=== PATIENT | female | born 1950 | race Caucasian/White ===

== ENCOUNTER 2019-12-30 12:22 | Outpatient (CLI) | payer MEDICARE, SELFPAY ==
--- NOTE | ~2019-12-30 | XR_ITS ---
XR pelvis 1-2V DATE: 12/30/2019 12:49 INDICATION: Frequent falls. Lower back, pelvic pain TECHNIQUE: AP pelvis COMPARISON: None FINDINGS: No pelvic fracture or bone destruction. The pubic symphysis and sacroiliac joints are intac t. There is mild osteoarthritis at the hip joints. IMPRESSION: No pelvic fracture Reviewed, dictated and finalized at location B. IMPRESSION: No pelvic fracture
--- NOTE | ~2019-12-30 | XR_ITS ---
XR lumbar spine 2-3V DATE: 12/30/2019 12:49 INDICATION: Frequent falls. Lower back pain, left pelvic pain. TECHNIQUE: AP, lateral, coned lateral lumbosacral views COMPARISON: 07/10/2018 lumbar spine FINDINGS: There is mild rotatory levoscoliosis of the lumbar spine. Diffuse osteopenia. No fracture or bone destruction, spondylolysis or spondylolisthesis is evident. There is prominent de generative change at the apophyseal joints, particularly lower lumbar and lumbosacral area. There is moderate degenerative disc disease at L4-5 and L5-S1. The sacroiliac joints are intact. Surgical clips overlie the right upper quadrant, likely due to cholecystectomy. IMPRESSION: Osteopenia Mild rotatory levoscoliosis Degenerative changes Reviewed, dictated and finalized at location B.
== END 2019-12-30 12:23 | disposition home or self-care (01) ==
PROVIDERS: PCP Internal Medicine; Visit Provider Nurse Practitioner Family
DX: M54.5 Low back pain (principal)
CPT/HCPCS: 72100; 72170

== ENCOUNTER 2021-06-06 14:42 | Emergency (ER) | payer MEDICARE, SELFPAY ==
--- NOTE | ~2021-06-06 | CT_ITS ---
EXAMINATION: CT brain wo [facility] EXAM DATE: 06/06/2021 15:11 INDICATION: Fall, right posterior head injury. TECHNIQUE: Spiral CT of the head was performed without contrast. Axial, coronal and sagittal images were reviewed. The dose-length product (DLP) for this examination was 605.33 mGy-cm. The exposure w as tailored according to patient size, and iterative reconstruction (ASIR) was used as additional dos e reduction technique. Comparison is made to prior examination from 07/25/2017. FINDINGS: Bilateral deep brain stimulators. Mild microangiopathy and mild to moderate atrophy. There is no acute intraparenchymal hemorrhage. No evidence of intraparenchymal brain mass lesion. No evid ence of acute infarction. There is no mass effect or midline shift. The ventricles are normal in si ze. There are no extra-axial collections. There are no acute calvarial fractures. The orbits are un remarkable. Soft tissue is unremarkable. The visualized sinuses and mastoid air cells are well aera darion. There is no significant interval change. IMPRESSION: No acute intracranial findings. Reviewed, dictated and finalized at location A.
--- NOTE | 2021-06-06 14:52 | ED.FALL ---
HPI - Fall General Chief Complaint: Fall Stated Complaint: AMBULANCE Time Seen by Provider: 06/06/21 14:44 Source: patient Mode of arrival: EMS Limitations: no limitations History of Present Illness HPI Narrative: 71-year-old woman with a history of Parkinson's and lives at assisted living facility brought to the emergency department by EMS after she slipped in the shower and hit the back of her head. She did not lose consciousness and states that she had no chest pain, shortness of breath, palpitations or headache prior to the fall. She has had no vomiting since then states that she feels well other than some pain in the back of her head. She denies neck and back pain, shoulder and hip pain, leg pain arm pain. Her usual mode of transportation as by pushing herself in a wheelchair. She states that she can transfer on her own. complaint: fall Onset (ago): hour(s) (1) Fall from: standing Fall witnessed: no Place fall occurred: correction/SNF Loss of consciousness: none Prolonged down time: no Symptoms prior to fall: none Context: tripped/slipped Location of injury: head Severity: mild Associated symptoms (after fall): denies Related Data Home Medications Medication Instructions Recorded Confirmed Teva-Doperidone 10 mg PO USEASDIRECTD 06/06/21 06/06/21 amantadine HCl 100 mg PO TID 06/06/21 06/06/21 aspirin 81 mg PO DAILY 06/06/21 06/06/21 carbidopa-levodopa 2.5 tablet PO USEASDIRECTD 06/06/21 06/06/21 montelukast 10 mg PO HS 06/06/21 06/06/21 paroxetine HCl 40 mg PO DAILY 06/06/21 06/06/21 trazodone 50 mg PO HS 06/06/21 06/06/21 Allergies Allergy/AdvReac Type Severity Reaction Status Date / Time codeine Allergy Unknown Unknown Verified 06/06/21 14:47 meperidine [From Demerol] Allergy Unknown Verified 06/06/21 14:47 zolpidem [From Ambien] Allergy Unknown Verified 06/06/21 14:47 Review of Systems Review of Systems: All systems reviewed & are unremarkable except as noted in HPI and below Constitutional: Constitutional: Denies chills and Denies fever(s) Eyes: Eyes: Denies change in vision ENT: Denies nasal congestion and Denies sore throat Cardiovascular: Cardiovascular: Denies chest pain and Denies radiating jaw, neck or arm pain Respiratory: Respiratory: Denies cough and Denies dyspnea Gastrointestinal: Gastrointestinal: Denies abdominal pain, Denies nausea and Denies vomiting Genitourinary: Genitourinary: Denies nocturia and Denies dysuria Musculoskeletal: Musculoskeletal: Denies back pain, Denies arthralgias and Denies joint swelling Integumentary/Breasts: Skin/Breast: Denies pruritus, Denies erythema and Denies rash Neurologic: Denies vertigo, Denies dizziness, Denies syncope, Denies headache(s), Denies focal weakness and Denies numbness Hematologic/Lymphatic: Hematologic/Lymphatic: Denies easy bleeding and Denies easy bruising Allergic/Immunologic: Allergic/Immunologic: Denies lip swelling and Denies throat swelling PMFSH Past Medical History Medical History Falls Hyperlipidemia Hypertension Insomnia Parkinsons disease Surgical History Surgical History History of cataract surgery Family History Family History (Updated 04/13/15 @ 10:01 by DOCTOR UNKNOWN) Father Family history of emphysema Mother Family history of congestive heart failure Other Cerebrovascular accident Social History Social History Smoking status: Never smoker Alcohol intake: current Exam Const: General: healthy appearing, no acute distress and alert Orientation/consciousness: patient oriented x3 Limitations: no limitations HENMT: Head: normal to inspection Ears: external ears normal, TM's normal bilaterally and EAC's normal General nose exam: Normal nares present Face and sinus: normal facial exam Mouth: Yes moist mucous mem
[2021-06-06 15:05] VITALS: BP 154/70; PULSE 83; RESP 16; TEMP 36.7; O2SAT 96
[2021-06-06 15:50] VITALS: BP 139/65; PULSE 75; RESP 18; O2SAT 98
== END 2021-06-06 15:50 | disposition home or self-care (01) ==
PROVIDERS: Emergency Provider Emergency Medicine; PCP Internal Medicine
DX: G20 Parkinson's disease (principal); S09.90XA Unspecified injury of head, initial encounter; W18.2XXA Fall in (into) shower or empty bathtub, initial encounter; E78.5 Hyperlipidemia, unspecified; I10 Essential (primary) hypertension
CPT/HCPCS: 70450; 99282; 99284

== ENCOUNTER 2022-07-23 13:53 | Outpatient (CLI) | payer MEDICARE, SELFPAY ==
--- NOTE | ~2022-07-23 | XR_ITS ---
EXAM: XR knee RT 3V DATE: 07/23/2022 14:44 HISTORY: R KNEE PAIN no known injury or fall . COMPARISON: None available. FINDINGS: Slightly decreased mineralization. No fracture or dislocation. No lytic or blastic lesion. Severe medial joint space narrowing. Tricompartmental osteophytosis, moderate in the lateral compart ment. Loss of valgus alignment. No erosion or periosteal change. Soft tissues within normal limits. M oderate volume joint effusion. IMPRESSION: Tricompartmental right knee osteoarthritis, severe in the medial compartment. Reviewed, dictated and finalized at location K. IMPRESSION: Tricompartmental right knee osteoarthritis, severe in the medial co mpartment.
--- NOTE | ~2022-07-23 | XR_ITS ---
EXAMINATION: XR chest 2V DATE: 07/23/2022 14:43 INDICATION: Shortness of breath and cough TECHNIQUE: Frontal and lateral views of the chest are obtained COMPARISON: 04/07/2015 FINDINGS: There are minimal airspace opacities of the right lung base. No pleural effusion or pneumot horax. The cardiomediastinal silhouette is normal. There is mild thoracic spondylosis. Surgical clips in the upper abdomen on the lateral view are likely from prior cholecystectomy. Electronic devices a re implanted in the anterior chest wall with there are electrodes coursing beyond the superior margin of the radiograph, likely deep brain stimulators. IMPRESSION: 1. Minimal right basilar airspace opacity, consistent with atelectasis versus pneumonia. Reviewed, dictated and finalized at location A. IMPRESSION: 1. Minimal right basilar airspace opacity, consistent with atelectasis versus p neumonia.
== END 2022-07-23 13:54 | disposition home or self-care (01) ==
PROVIDERS: PCP Internal Medicine; Visit Provider Nurse Practitioner Family
DX: M25.561 Pain in right knee (principal); R32 Unspecified urinary incontinence; R06.00 Dyspnea, unspecified
CPT/HCPCS: 71046; 73562

== ENCOUNTER 2022-07-26 12:09 | Outpatient (CLI) | payer MEDICARE, SELFPAY ==
[2022-07-26 12:20] LABS: Appearance Urine Cloudy (Clear); Bilirubin Urine Negative (Negative); Blood Urine Negative (Negative); Glucose Urine UA Negative (Negative); Ketones Urine Negative (Negative); Leukocyte Esterase Ur 3+ (Negative); Nitrate Urine Positive (Negative); Protein Urine 1+ (Negative); Specific Grav Ur <= 1.005 (1.010-1.020); Urobilinogen Urine 0.2 mg/dL (0.2-1.0)
[2022-07-26 12:25] LABS: Add Urine Microscopic? YES; Color Urine Yellow (Yellow); RBC Urine 0-2 /hpf (0-2); Squamous Epithelial Cell Urine Rare /hpf (Few)
[2022-07-26 12:27] LABS: Bacteria Urine 2+ /hpf
[2022-07-26 12:28] LABS: Triple Phosphate Crystal Urine Present /hpf
== END 2022-07-26 12:10 | disposition home or self-care (01) ==
LOC: CHSLAB 12:11
PROVIDERS: PCP Internal Medicine; Visit Provider Nurse Practitioner Family
DX: R30.0 Dysuria (principal); R32 Unspecified urinary incontinence
CPT/HCPCS: 81001; 87077; 87086; 87088; 87186

== ENCOUNTER 2025-04-13 01:43 | Day surgery (SDC) | payer MEDICARE, SELFPAY ==
[2025-04-12 14:14] VITALS: BMI 30.7
--- NOTE | 2025-04-12 14:30 | PC.NURSE ---
Report to the Outpatient Waiting Room, entrance under the green pavilion located off [facility], at time _10:00am on date _04/13/25 . Planned Procedure Time: _12:00pm .? Time changes happen often and if your time is changed the preop area will call you the afternoon before. - You and your visitor will be asked to self-screen and do not enter if you have any COVID symptoms. Please call surgeon if you need to reschedule. - A mask is optional within the hospital at this time. Patients may have clear liquids (water, carbonated beverages, clear teas, apple juice) until 3 hours prior to surgery with a maximum of 20 ounces. - No food from midnight until time of surgery and no smoking, or chewing tobacco (or any form of nicotine). No chewing gum, candy or mints. (0900am) Take only the following medications with a SIP of water on the morning of surgery: ___Carbodopa/Levodopa and Lexapro DO NOT STOP ANY OF YOUR OTHER PRESCRIPTION MEDICATIONS PRIOR TO SURGERY EXCEPT THE FOLLOWING Hold all vitamins and supplements for 3 days per anesthesiologist. Medications to discontinue per physician Aspirin till post op Date to take last dose 04/11/25 Please no make-up, nail solomon islander, hairspray, perfume, deodorant, or body powder the day of surgery.? No jewelry (including any body piercings) or valuables the day of surgery, leave them at home.? Please take a shower or bath the night before, or the morning of, surgery with an antibacterial soap.? Wear comfortable, loose fitting clothing. - Jewelry must be removed prior to entering the operating room.? Rings and piercings that are not removed may be cut off. - The hospital will not accept responsibility for valuables.? - Please leave all valuables, including medications, at home the day of surgery. Daughter to bring in the DEEP BRAIN STIMULATOR with her to turn off PRE OP. If you are going home after surgery, a licensed milk pickup truck driver must drive you home.? - NO public transportation without another adult if you receive anesthesia. - We recommend that an adult stay with you for 24 hours following discharge. - We also recommend that you do not drive, make important decision, drink alcoholic beverages, or take any drugs that were not prescribed by your health care provider for at least 24 hours after your discharge time. Follow any additional instructions given to you from your surgeon. Telephone instructions given to __Patient and asked if any additional questions and then verbalized understanding. Patient advised to call surgeon office or pre surgery nurse liaison [phone] if any additional questions.
[2025-04-13] VITALS (12 sets, daily range): BP systolic 121–194; BP diastolic 53–90; PULSE 59–94; RESP 18–25; TEMP 36.6–36.9; O2SAT 93–100; BMI 28.2
--- NOTE | ~2025-04-13 | XR_ITS ---
XR fluoroscopy no charge Ordering provider: Ta Denise MD History: . LT STONE EXTRACTION . Comparison: None. FINDINGS/impression: Fluoroscopy time is 17.7 seconds. Cumulative dose is 6.65 mGy. Reviewed, dictated and finalized at location A.
--- OUTSIDE RECORDS SUMMARY | 2025-04-13 02:11 | XMS_ITS | Clinical Summary ---
Author Organization [facility] Address [facility] [place] [address] Care Team Providers Care Brush Finisher Name Role Phone Yannick Lange MD Primary Care Provider [phone] Allergies Active Allergy Reactions Criticality Noted Date Comments Codeine GI Upset 07/18/2021 Meperidine GI Upset 07/18/2021 Zolpidem Unknown 01/31/2024 Medications carbidopa-levod opa (SINEMET) 25-100 MG tablet Take 2.5 tablets by mouth 4 (four) times daily. Patient takes medication 4 times daily at 0830, 1230, 1630, and 2030. 4 Active amantadine (SYMMETREL) 100 MG capsule Take 1 capsule (100 mg total) by mouth 3 (three) times daily. Patient takes medication at 0830 and 1230. 4 Active traZODone (DESYREL) 50 MG tablet Take 1 tablet (50 mg total) by mouth nightly at bedtime. 4 Active montelukast (SINGULAIR) 10 MG tablet Take 1 tablet (10 mg total) by mouth nightly at bedtime. Active aspirin 81 MG chewable tablet Chew 1 tablet (81 mg total) by mouth daily. Patient takes medication at 2030. Active Active Problems Problem Noted Date Diagnosed Date Frequent falls 04/27/2019 Encounters Date Type Department Care Team Description 04/08/2025 1:22 PM CDT - 04/08/2025 11:59 PM CDT Hospital Encounter [facility] [address] [facility] [place] [address] Benny Lubin PA Discharge Disposition: Home or Self Care (Routine Discharge) 04/08/2025 Travel from Last 3 Months Family History Medical History Relation Comments COPD Father Emphysema Father Heart Disease Father COPD Mother Diabetes Mother Emphysema Mother Relation Status Comments Father Mother Social History Tobacco Use Types Packs/Day Years Used Date Smoking Tobacco: Never Smokeless Tobacco: Never Alcohol Use Standard Drinks/Week Comments Yes 0 (1 standard drink = 0.6 oz pur e alcohol) rare Comments No Sex and Gender Information Value Date Recorded Sex Assigned at Female 11/27/2024 5:47 PM SHOPPER'S AIDE Legal Sex Female 5:55 PM SHOPPER'S AIDE Gender Identity Not on file Sexual Orientation Not on file Last Filed Vital Signs Vital Sign Reading Time Taken Comments Blood Pressure 114/87 11/27/2024 5:45 PM SHOPPER'S AIDE Pulse 92 11/27/2024 5:45 PM SHOPPER'S AIDE Temperature 36.6 C (97.8 F) 11/27/2024 5:45 PM SHOPPER'S AIDE Respiratory Rate 18 11/27/2024 5:45 PM SHOPPER'S AIDE Oxygen Saturation 95% 11/27/2024 5:45 PM SHOPPER'S AIDE Inhaled Oxygen Concentration - - Weight 80.7 kg (178 lb) 11/27/2024 5:45 PM SHOPPER'S AIDE Height 162.6 cm (5' 4) 11/27/2024 5:45 PM SHOPPER'S AIDE Body Mass Index 30.55 11/27/2024 5:45 PM SHOPPER'S AIDE Plan of Treatment Health Maintenance Due Date Last Done Comments Colorectal Cancer Screening Colonoscopy (10 Years) 1950 Hepatitis C 1967 DTaP, Tdap and Td Vaccines ( 1 - Tdap) 1968 Annual Medicare Wellness Visit 2014 Dexa Scan (General) 2014 Zoster Vaccines (2 of 3) 09/10/2014 07/16/2014 Pneumococcal Vaccine: 50+ Ye ars (2 of 2 - PPSV23) 12/21/2020 12/22/2019 RSV Immunization or 60+ Years (1 - 1-dose 75+ series) 2024 COVID-19 Vaccine (2 - 2023-2 5 season) 2024 12/21/2020 Meningococcal B Vaccine Aged Out No l onger eligible based on patient's age to complete this topic Meningococcal Vaccine Aged Out No zenaida amanda eligible based on patient's age to complete this topic RSV Immunizations Under 20 Months Aged Out No longer eligible based on patient's age to complete this topic Procedures Procedure Name Priority Date/Time Associated Diagnosis Comments CT ABD+PEL WO CON HOLLIE 04/08/2025 1:5 5 PM CDT Acute left flank pain XR ABD KUB HOLLIE 04/08/2025 1:51 PM CDT Acute left flank pain from Last 3 Months Results * CT ABD+PEL WO CON (04/08/2025 1:55 PM CDT) Anatomical Region Laterality Modality Abdomen Computed Tomogra phy 04/08/2025 1:54 PM CDT Impressions 04/08/2025 2:05 PM CDT IMPRESSION: 1. Approximately 0.8 cm obstructing stone, near LEFT ureterovesical junction, causing left hydronephrosis. 2. Nonobstructing stones, calyces of bilateral kidneys. 3. Possible cystitis. 4. Coronary artery disease. Ordered By: BENNY LUBIN Interpreted By: John Franklin MD, 04/08/2025 1:54 PM Narrative 04/08/2025 2:05 PM [address]T [address] [place] [address] EXAMINATION: CT Abdomen and Pelvis without contrast DATE: 04/08/2025 1:43 PM CLINICAL HISTORY: Acute left flank pain. COMPARISON: 03/01/2024 TECHNIQUE: Computed tomography of the abdomen and pelvis was obtained without administration of intravenous contrast according to routine protocol. A dose lowering technique was used for this procedure, which may include, but is not limited to, dose reduction technique, automated exposure control, the use of iterative reconstruction, and ALARA (As Low As Reasonably Achievable) / Image Gently techniques. FINDINGS: Breathing motion in bibasilar lungs. Coronary artery disease. Small hiatal hernia. Atherosclerotic thoracic aorta. Punctate liver and splenic calcifications. Noncontrast images of the pancreas, and adrenal glands are normal. Cholecystectomy clips. Approximately 0.8 cm projecting stone near the left ureterovesical junction, causing left hydronephrosis with periureteral and perinephric fat stranding. There appears to be a nonobstructing stone in the calyx of left kidney measuring up to 5 mm. There is one nonobstructing stone measuring up to 6 mm in the calyx of right kidney. No right ureteral stones. Atherosclerotic abdominal aorta without aneurysm. No retroperitoneal hematoma. No bowel obstruction. No free air. No ascites. Normal appendix. Postsurgical changes in the small bowel. Uterus is absent. Ovaries not well visualized. Nondistended urinary bladder. Pelvic fat stranding around the urinary bladder. Pelvic vascular arterial calcifications. Scoliosis. Spondylosis. Procedure Note John Franklin MD - 04/08/2025 [place] [id number] [facility] [place] [address] EXAMINATION: CT Abdomen and Pelvis without contrast DATE: 04/08/2025 1:43 PM CLINICAL HISTORY: Acute left flank pain. COMPARISON: 03/01/2024 TECHNIQUE: Computed tomography of the abdomen and pelvis was obtainedwithout administration of intravenous contrast according to routineprotocol. A dose lowering technique was used for this procedure, which mayinclude, but is not limited to, dose reduction technique, automatedexposure control, the use of iterative reconstruction, and ALARA (As LowAs Reasonably Achievable) / Image Gently techniques. FINDINGS: Breathing motion in bibasilar lungs. Coronary artery disease. Small hiatalhernia. Atherosclerotic thoracic aorta. Punctate liver and splenic calcifications. Noncontrast images of thepancreas, and adrenal glands are normal. Cholecystectomy clips.Approximately 0.8 cm projecting stone near the left ureterovesicaljunction, causing left hydronephrosis with periureteral and perinephricfat stranding. There appears to be a nonobstructing stone in the calyx ofleft kidney measuring up to 5 mm. There is one nonobstructing stonemeasuring up to 6 mm in the calyx of right kidney. No right ureteralstones. Atherosclerotic abdominal aorta without aneurysm. No retroperitonealhematoma. No bowel obstruction. No free air. No ascites. Normal appendix.Postsurgical changes in the small bowel. Uterus is absent. Ovaries not well visualized. Nondistended urinarybladder. Pelvic fat stranding around the urinary bladder. Pelvic vasculararterial calcifications. Scoliosis. Spondylosis. IMPRESSION: 1. Approximately 0.8 cm obstructing stone, near LEFT ureterovesicaljunction, causing left hydronephrosis. 2. Nonobstructing stones, calyces of bilateral kidneys. 3. Possible cystitis. 4. Coronary artery disease. Ordered By: BENNY LUBIN Interpreted By: John Franklin MD, 04/08/2025 1:54 PM Benny Lubin PA CT Final Res ult * XR ABD KUB (04/08/2025 1:51 PM CDT) Anatomical Region Laterality Modality Abdomen Radiographic Lori ging 04/08/2025 3:24 PM CDT Impressions 04/08/2025 3:26 PM CDT IMPRESSION: Possible left ureteral stone described on CT identified in the left pelvis, marked with an arrow. Ordered By: BENNY LUBIN Interpreted By: John Franklin MD, 04/08/2025 3:24 PM Narrative 04/08/2025 3:26 PM [address]T [address] [place] [address] Examination: Abdomen 1 view Exam time: 04/08/2025 Clinical history: Acute left flank pain. Comparison: CT abdomen/pelvis obtained same day Technique: Single supine view of the abdomen were obtained. Findings: Bowel gas pattern appears normal. No obvious free air on this supine film. Cholecystectomy clips. Scoliosis. Spondylosis. Multiple pelvic phleboliths. Possible left ureteral stone described on CT identified in the left pelvis, marked with an arrow. Procedure Note John Franklin MD - 04/08/[address] [place] [address] Examination: Abdomen 1 view Exam time: 04/08/2025 Clinical history: Acute left flank pain. Comparison: CT abdomen/pelvis obtained same day Technique: Single supine view of the abdomen were obtained. Findings: Bowel gas pattern appears normal. No obvious free air on thissupine film. Cholecystectomy clips. Scoliosis. Spondylosis. Multiple pelvic phleboliths. Possible left ureteral stone described on CTidentified in the left pelvis, marked with an arrow. IMPRESSION: Possible left ureteral stone described on CT identified in the leftpelvis, marked with an arrow. Ordered By: BENNY LUBIN Interpreted By: John Franklin MD, 04/08/2025 3:24 PM us [facility] Final Res ult from Last 3 Months Insurance [employer] Advance Directives Documents on File Type Date Recorded Patient Mortgage Funder Expl anation Advance Directives and Livin g Will 03/02/2024 9:18 AM Advance Directives and Livin g Will 03/02/2024 9:18 AM Care Teams Brush Finisher Relationship Specialty Start Date End Date Yannick Lange MD [address] [place] [address] PCP - General INTERNAL MEDICINE 04/20/19
--- OUTSIDE RECORDS SUMMARY | 2025-04-13 02:11 | XMS_ITS | Encounter Summary ---
Author Organization [facility] Address [address] [place] [address] Care Team Providers Care Airconditioning Plant Operator Name Role Phone Yannick Lange MD Primary Care Provider [phone] Reason for Visit * Reason Onset Date Comments cx appt 04/12/2025 Encounter Details Date Type Department Care Team (Late st Contact Info) Description 04/12/2025 Telephone [facility] [address] [facility] [address] [place] [address] Khari Monreal MD [address] [facility] [address] [place], [place] [id number] cx appt Social History Tobacco Use Types Packs/Day Years Used Date Smoking Tobacco: Never Smokeless Tobacco: Never Feeling Safe Answer Date Recorded Are you in a relationship wi th someone who hurts you emotionally and/or physically? Patient unable to answer 04/01/2024 Comments Unknown Sex and Gender Information Value Date Recorded Sex Assigned at Not on file Legal Sex Female 12:26 AM CDT Gender Identity Not on file Sexual Orientation Not on file documented as of this encounter Miscellaneous Notes * Telephone Encounter - Elba Boss - 04/12/2025 1:31 PM CDT Pt called and lvm to cx appt will call back to eloy called back no answer lvm. documented in this encounter Plan of Treatment Not on file documented as of this encounter Visit Diagnoses Not on filedocumented in this encounter Care Teams Airconditioning Plant Operator Relationship Specialty Start Date End Date Yannick Lange MD [address] [place] [phone] PCP - General Internal Medicine 03/02/24 documented as of this encounter
--- OUTSIDE RECORDS SUMMARY | 2025-04-13 02:11 | XMS_ITS | Clinical Summary ---
Author Organization [facility] Address [address] [place] [address] Phone Care Team Providers Care Wide Area Network Engineer Name Role Phone Yannick Lange MD Primary Care Provider [phone] Allergies Active Allergy Reactions Criticality Noted Date Comments Codeine Unknown 03/02/2024 Meperidine Unknown Low 03/02/2024 Zolpidem Unknown 03/02/2024 Medications amantadine (SYMMETREL) 100 mg tablet Take 100 mg by mouth 2 times daily. Takes at 0830 and 1230 daily 01/31/2024 Active escitalopram oxalate (LEXAPRO) 20 mg tablet Take 20 mg by mouth daily. 01/31/2024 Active aspirin (JOSESITO CHEWABLE) 81 mg Tablet, Chewable Take 81 mg by mouth daily. Active montelukast (SINGULAIR) 10 mg tablet Take 10 mg by mouth daily. Active traZODone (DESYREL) 50 mg tablet Take 100 mg by mouth daily at bedtime. 01/21/2024 Active carbidopa-levodo pa (SINEMET) 25-100 mg tablet Take by mouth. Takes 1.5 tab @ 0830, 2 tab @ 1030, 1.5 tab @ 1230pm, 2 tab @ 1430, 1.5 tab @ 1630, 2 tab @ 1830, 1 tab @ 2030 01/31/2024 Active ciprofloxacin HCl (CIPRO) 250 mg tablet Take 250 mg by mouth 2 times daily. Active DOMPERIDONE, BULK, MISC 10 mg by Misc.(Non-Dr ug; Combo Route) route. Active oxyCODONE-acetam inophen (PERCOCET) 5-325 mg tabletIndication s:Calculus of kidney Take 1 Tablet by mouth every 8 hours as needed for Pain, Severe. Max Daily Amount: 3 Tablets 20 Tablet 04/01/2024 3:47 PM CDT 04/01/2024 Active tamsulosin (FLOMAX) 0.4 mg capsule Take 1 Capsule (0.4 mg) by mouth 1 time daily as needed for stent related syptoms 30 Capsule 04/01/2024 3:47 PM CDT 04/01/2024 Active fluconazole (DIFLUCAN) 200 mg tabletIndication s:Urinary tract infection without hematuria, site unspecified Take 1 Tablet (200 mg) by mouth daily. 1 Tablet 04/06/2024 Active vibegron (Gemtesa) 75 mg Tablet Take 75 mg by mouth daily. 90 Tablet 3 04/20/2024 Active Active Problems Problem Noted Date Diagnosed Date Acute cystitis with hematuria 03/03/2024 Kidney stone 03/02/2024 Parkinson's disease 03/02/2024 Resolved Problems Problem Noted Date Diagnosed Date Resolved Date Sepsis 03/02/2024 03/05/2024 Encounters Date Type Department Care Team Description 04/12/2025 Telephone [facility] Medicine [address] [facility] [address] [place] [address] Khari Monreal MD cx appt 03/16/2025 External Device Data [facility] ABSTRACTION Provider, Abstract 03/02/2025 External Device Data [facility] ABSTRACTION Provider, Abstract 02/23/2025 External Device Data [facility] ABSTRACTION Provider, Abstract 02/16/2025 External Device Data [facility] ABSTRACTION Provider, Abstract 02/16/2025 External Device Data [facility] ABSTRACTION Provider, Abstract 01/26/2025 External Device Data [facility] ABSTRACTION Provider, Abstract 01/12/2025 External Device Data [facility] ABSTRACTION Provider, Abstract 01/12/2025 External Device Data [facility] ABSTRACTION Provider, Abstract 01/12/2025 External Device Data [facility] ABSTRACTION Provider, Abstract from Last 3 Months Social History Tobacco Use Types Packs/Day Years Used Date Smoking Tobacco: Never Smokeless Tobacco: Never Tobacco Cessation:Counseling Given: Yes Feeling Safe Answer Date Recorded Are you [...] Sign Reading Time Taken Comments Blood Pressure 154/72 04/01/2024 3:32 PM CDT Pulse 81 04/01/2024 3:32 PM CDT Temperature 36.9 C (98.4 F) 04/01/2024 3:32 PM CDT Respiratory Rate 18 04/20/2024 2:07 PM CDT Oxygen Saturation 94% 04/01/2024 3:32 PM CDT Inhaled Oxygen Concentration - - Weight 79.8 kg (176 lb) 04/20/2024 2:07 PM CDT Height 162.6 cm (5' 4) 04/01/2024 11:38 AM CDT Body Mass Index 30.21 04/01/2024 11:38 AM CDT Plan of Treatment Health Maintenance Due Date Last Done Comments DTAP/TDAP/TD VACCINES (1 - Tdap) 1968 COLORECTAL SCREENING 1994 Colorectal Cancer Screening 1994 FIT-DNA Q 3 years 1994 FIT/FOBT Q 1 year 1994 Flex Sig/CT Colonography Q 5 years 1994 OSTEOPOROSIS SCREENING 2014 ZOSTER VACCINE (2 of 3) 09/10/2014 07/16/2014 INFLUENZA VACCINE (#1) 2024 , 07/07/2020, 07/22/2019, Additional history exists RSV VACCINE (60+ or ) (1 - 1-dose 75+ series) 2024 Medicare Advantage ([place]) Preventative Visit/Annual Wellness Visit 10/14/2024 PNEUMOCOCCAL VACCINE 50+ YEA RS (3 of 3 - PCV20 or PCV21) 12/21/2024 12/22/2019, 08/28/2012 Medical Devices Implanted Type Area Sql Manager Device Identifier Shelf Expiration Date Model / Serial / Lot Neuro Stimulator Neuro Stimulator Description:Deep brain stimu lator Stent Tria Soft 6fr 26cm W/ Side Hl [id number] - [id number] Implanted:Qty : 1 on 04/01/2024 by Khari Monreal MD at [facility] Stent Left: 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 [employer]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 [id number] 12/11/2026 [id number] 230 / / [id number] Explanted Type Area Sql Manager Device Identifier Shelf Expiration Date Model / Serial / Lot Stent Tria Soft 6fr 26cm W/ Side Hl [id number] - [id number] Implanted:Qty: 1 on 03/02/2024 by Khari Monreal MD at [facility] Explanted:Qty: 1 on 04/01/2024 by Khari Monreal MD at [facility] Stent Left: 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 [employer]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 [id number] 12/01/2026 [id number] 30 / / [id number] Insurance [employer] [facility] RX AETNA Medicare Part D RX [employer] (INTERNAL) [facility] Advance Directives For more information, please contact: [phone] Documents on File Type Date Recorded Patient Manager Customer Expl anation Advance Directive POA 03/13/2024 12:13 PM Advance Directive POA * Full Code (Latest Code Status on File) Date Activated Date Inactivated Comments 04/01/2024 12:54 PM 04/01/2024 5:49 PM * Full Code Date Activated Date Inactivated Comments 04/01/2024 11:37 AM 04/01/2024 12:54 PM * Full Code Date Activated Date Inactivated Comments 03/02/2024 6:01 AM 03/05/2024 2:50 PM Care Teams Wide Area Network Engineer Relationship Specialty Start Date End Date Yannick Lange MD [address] [place] [id number] PCP - General Internal Medicine 03/02/24
--- OUTSIDE RECORDS SUMMARY | 2025-04-13 02:11 | XMS_ITS | Clinical Summary ---
Author Organization Unknown Care Team Providers Care High Tension Tester Name Role Phone DAVE ASSISTANT PROFESSOR OF GERMAN, YASMINE Unavailable Unavailable EMILY TIME STAMP ASSEMBLER, NELLIE Unavailable Unavailabl e RAY OT, FLORENCIO Unavailable Unavailable GRANT RN, FABIEN Unavailable Unavailable JANELLE PT, LACIE Unavailable Unavailable JOHN PT, TJ Unavailable Unavailable RISHABH PT, PARISH Unavailable Unavailabl e Payers Payer Name Policy Type Policy Number Effective Date Expira tion Date [employer] MEDICARE ADVANTAGE FFS - ORDER DRIVEN [id number] ZZZ [employer] MEDICARE ADVANTAGE FFS [id number] MEDICARE - [place] - PDGM [id number] Problems Condition Name Condition Details Condition Category Status Onset Date Resolution Date Last Treatment Date Treating Clinician Comments PARKINSON'S DIS WITH DYSKINESIA, W/O MENTION OF FLUCTUATIONS Active 10-14 00:00: 00 DEM IN OTHER DIS CLASSD ELSWHR, UNSP SEVERITY, WITH ANXIETY Active 10-14 00:00: 00 PSYCHOPHYSIO LOGIC INSOMNIA Active 10-14 00:00: 00 MORBID (SEVERE) OBESITY WITH ALVEOLAR HYPOVENTILAT ION Active 10-14 00:00: 00 BODY MASS INDEX [BMI] 34.0-34.9, ADULT Active 10-14 00:00: 00 PRIMARY GENERALIZED (OSTEO)ARTHR ITIS Active 10-14 00:00: 00 UNSPECIFIED ASTHMA, UNCOMPLICATE D Active 10-14 00:00: 00 HYPERLIPIDEM IA, UNSPECIFIED Active 10-14 00:00: 00 LUMBAGO WITH SCIATICA, UNSPECIFIED SIDE Active 10-14 00:00: 00 ACQUIRED ABSENCE OF OTHER SPECIFIED PARTS OF DIGESTIVE TRACT Active 10-14 00:00: 00 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 Ordering Clinician Indication Dosage Frequency Signature (SIG) Comments Components amantadine HCl 100 mg capsule 05-20 00:00: 00 12-10 23:59 :00 No [id number] 1 capsule DIRECTED 1 capsule DIRECTED (route: oral) Med Classific ation: Central Nervous System Agents aspirin 81 mg tablet,danita yed release 05-20 00:00: 00 12-10 23:59 :00 No [id number] 1 tablet DAILY 1 tablet DAILY (route: oral) Med Classific ation: Hematolog ical Agents Ca phos-cranbe rry-milk thistle capsule 05-20 00:00: 00 11-15 23:59 :00 No [id number] 1 capsule DAILY 1 capsule DAILY (route: oral) Med Classific ation: Alternati ve Therapy carbidopa 25 mg-levodopa 100 mg tablet 05-20 00:00: 00 12-10 23:59 :00 No [id number] 2.5 tablet DIRECTED 2.5 tablet DIRECTED (route: oral) Med Classific ation: Central Nervous System Agents montelukast 10 mg tablet 05-20 00:00: 00 12-10 23:59 :00 No [id number] 1 tablet BEDTIME 1 tablet BEDTIME (route: oral) Med Classific ation: Respirato ry Therapy Agents paroxetine 40 mg tablet 05-20 00:00: 00 12-10 23:59 :00 No [id number] 1 tablet 2 TIMES DAILY 1 tablet 2 TIMES DAILY (route: oral) Med Classific ation: Central Nervous System Agents trazodone 50 mg tablet 8-07 00:00: 00 12-10 23:59 :00 No [id number] 1 tablet BEDTIME 1 tablet BEDTIME (route: oral) Med Classific ation: Central Nervous System Agents Dulcolax (bisacodyl) 5 mg tablet,danita yed release 8-20 00:00: 00 12-10 23:59 :00 No [id number] 1 tablet DAILY 1 tablet DAILY (route: oral) Med Classific ation: Gastroint estinal Therapy Agents escitalopra m 10 mg tablet 2-24 00:00: 00 12-17 00:00 :00 No [id number] Per instruc tions Per instructio ns (route: oral) Med Classific ation: Central Nervous System Agents paroxetine 40 mg tablet 2-04 00:00: 00 02-12 23:59 :00 No [id number] 1 tablet 2 TIMES A DAY 1 tablet 2 TIMES A DAY (route: oral) Med Classific ation: Central Nervous System Agents trazodone 50 mg tablet 2-04 00:00: 00 02-12 23:59 :00 No [id number] 1 tablet AT BEDTIME 1 tablet AT BEDTIME (route: oral) Med Classific ation: Central Nervous System Agents amantadine HCl 100 mg tablet 3-06 00:00: 00 01-27 23:59 :00 No [id number] 1 tablet 2 TIMES DAILY 1 tablet 2 TIMES DAILY (route: oral) Med Classific ation: Central Nervous System Agents aspirin 81 mg tablet,danita yed release 3-06 00:00: 00 01-27 23:59 :00 No [id number] 1 tablet DAILY 1 tablet DAILY (route: oral) Med Classific ation: Hematolog ical Agents carbidopa 25 mg-levodopa 100 mg disintegrat ing tablet 3-06 00:00: 00 01-27 23:59 :00 No [id number] Per instruc tions DIRECTED Per instructio ns DIRECTED (route: oral) Med Classific ation: Central Nervous System Agents montelukast 10 mg tablet -06 00:00: 00 01-27 23:59 :00 No [id number] 1 tablet DAILY 1 tablet DAILY (route: oral) Med Classific ation: Respirato ry Therapy Agents Stool Softener 100 mg capsule 3-06 00:00: 00 01-27 23:59 :00 No [id number] 1 capsule 2 TIMES DAILY 1 capsule 2 TIMES DAILY (route: oral) Med Classific ation: Gastroint estinal Therapy Agents escitalopra m 10 mg tablet 02-15 00:00: 00 01-27 23:59 :00 No [id number] 1 tablet DAILY 1 tablet DAILY (route: oral) Med Classific ation: Central Nervous System Agents trazodone 50 mg tablet 02-15 00:00: 00 01-27 23:59 :00 No [id number] 2 tablet BEDTIME 2 tablet BEDTIME (route: oral) Med Classific ation: Central Nervous System Agents prednisone 10 mg tablet 15 00:00: 00 03-08 23:59 :00 No [id number] Per instruc tions DAILY Per instructio ns DAILY (route: oral) Med Classific ation: Endocrine trazodone 50 mg tablet 01-20 00:00: 00 Yes [id number] 2 tablet BEDTIME 2 tablet BEDTIME (route: oral) Med Classific ation: Central Nervous System Agents amantadine HCl 100 mg tablet 01-30 00:00: 00 10-27 23:59 :00 No [id number] 1 tablet 2 TIMES DAILY 1 tablet 2 TIMES DAILY (route: oral) Med Classific ation: Central Nervous System Agents aspirin 81 mg tablet,danita yed release 01-30 00:00: 00 Yes [id number] 1 tablet DAILY 1 tablet DAILY (route: oral) Med Classific ation: Hematolog ical Agents carbidopa 25 mg-levodopa 100 mg tablet 01-30 00:00: 00 03-05 23:59 :00 No [id number] Per instruc tions DIRECTED Per instructio ns DIRECTED (route: oral) Med Classific ation: Central Nervous System Agents escitalopra m 20 mg tablet 01-30 00:00: 00 Yes [id number] 1 tablet DAILY 1 tablet DAILY (route: oral) Med Classific ation: Central Nervous System Agents montelukast 10 mg tablet 01-30 00:00: 00 Yes [id number] 1 tablet BEDTIME 1 tablet BEDTIME (route: oral) Med Classific ation: Respirato ry Therapy Agents DOMPERIDONE 10mg 01-30 00:00: 00 03-05 23:59 :00 No [id number] 1 tablet DIRECTED 1 tablet DIRECTED (route: BY MOUTH) Med Classific ation: ANTIDIARR HEALS amoxicillin 875 mg-potassiu m clavulanate 125 mg tablet 03-05 00:00: 00 03-12 23:59 :00 No [id number] 1 tablet EVERY 12 HOURS 1 tablet EVERY 12 HOURS (route: oral) Med Classific ation: Anti-Infe ctive Agents carbidopa 25 mg-levodopa 100 mg tablet 03-05 00:00: 00 Yes [id number] Per instruc tions DIRECTED Per instructio ns DIRECTED (route: oral) Med Classific ation: Central Nervous System Agents Florastor 250 mg capsule 03-05 00:00: 00 03-15 23:59 :00 No [id number] 1 capsule 2 TIMES DAILY 1 capsule 2 TIMES DAILY (route: oral) Med Classific ation: Gastroint estinal Therapy Agents Cipro 250 mg tablet 03-17 00:00: 00 03-20 23:59 :00 No [id number] 1 tablet EVERY 12 HOURS 1 tablet EVERY 12 HOURS (route: oral) Med Classific ation: Anti-Infe ctive Agents clotrimazol e 1 % topical cream 03-17 00:00: 00 Yes [id number] Per instruc tions 2 TIMES DAILY Per instructio ns 2 TIMES DAILY (route: topical) Med Classific ation: Dermatolo gical ciprofloxac in 250 mg tablet 12 00:00: 00 04-03 23:59 :00 No [id number] 1 tablet EVERY 12 HOURS 1 tablet EVERY 12 HOURS (route: oral) Med Classific ation: Anti-Infe ctive Agents Daily Probiotic (S. boulardii) 250 mg capsule 12 00:00: 00 04-03 23:59 :00 No [id number] 1 capsule 2 TIMES DAILY 1 capsule 2 TIMES DAILY (route: oral) Med Classific ation: Gastroint estinal Therapy Agents fluconazole 100 mg tablet 04-18 00:00: 00 04-24 23:59 :00 No [id number] Per instruc tions DIRECTED Per instructio ns DIRECTED (route: oral) Med Classific ation: Anti-Infe ctive Agents metronidazo le 500 mg tablet 04-18 00:00: 00 04-24 23:59 :00 No [id number] 1 tablet DAILY 1 tablet DAILY (route: oral) Med Classific ation: Anti-Infe ctive Agents Gemtesa 75 mg tablet 08 00:00: 00 05-04 23:59 :00 No [id number] 1 tablet DAILY 1 tablet DAILY (route: oral) Med Classific ation: Genitouri nary Therapy bupropion HCl 75 mg tablet 7-17 00:00: 00 Yes [id number] 1 tablet DAILY 1 tablet DAILY (route: oral) Med Classific ation: Central Nervous System Agents Gemtesa 75 mg tablet 8-14 00:00: 00 Yes [id number] 1 tablet DAILY 1 tablet DAILY (route: oral) Med Classific ation: Genitouri nary Therapy methenamine hippurate 1 gram tablet 1-14 00:00: 00 Yes [id number] 1 tablet 2 TIMES DAILY 1 tablet 2 TIMES DAILY (route: oral) Med Classific ation: Genitouri nary Therapy nitrofurant oin 100 mg tablet 1-14 00:00: 00 12-07 23:59 :00 No [id number] 100 mg BEDTIME 100 mg BEDTIME (route: oral) Med Classific ation: Genitouri nary Therapy rivastigmin e 4.6 mg/24 hour transdermal patch 01-13 00:00: 00 Yes [id number] 1 patch, transde rmal 24 hours DAILY 1 patch, transderma l 24 hours DAILY (route: transderma l) Med Classific ation: Cognitive Disorder Therapy Immunizations Ordered Immunization Name Filled Immunization Name Date Status Comments Refusal Reason INFLUENZA, TIV (INACTIVATED) 2023-07-09 00:00:00 PNEUMOCOCCAL (PPV), PPV 2021-02-07 00:00:00 Vital Signs Vital Name Observation Time Observation Value Commen ts Temperature 2025-04-07 09:11:00.000 98.1 [degF] Temperature 2025-04-06 11:42:00.000 98.5 [degF] Temperature 2025-04-06 09:43:00.000 98.2 [degF] Temperature 2025-03-31 15:21:00.000 97.5 [degF] Temperature 2025-03-31 12:38:00.000 97.9 [degF] Temperature 2025-03-30 14:20:00.000 97.3 [degF] Pulse 2025-04-07 09:11:00.000 74 /min Pulse 2025-04-06 11:42:00.000 75 /min Pulse 2025-04-06 09:43:00.000 80 /min Pulse 2025-03-31 15:21:00.000 68 /min Pulse 2025-03-31 12:38:00.000 72 /min Pulse 2025-03-30 14:20:00.000 78 /min O2 Saturation (%) 2025-04-06 11:42:00.000 94 % O2 Saturation (%) 2025-04-06 09:43:00.000 94 % O2 Saturation (%) 2025-03-30 14:23:00.000 95 % Respirations 2025-04-07 09:11:00.000 18 /min Respirations 2025-04-06 11:42:00.000 18 /min Respirations 2025-04-06 09:43:00.000 17 /min Respirations 2025-03-31 15:21:00.000 16 /min Respirations 2025-03-31 12:38:00.000 18 /min Respirations 2025-03-30 14:20:00.000 16 /min Systolic Blood Pressure 2025-04-07 09:11:00.000 168 mm [Hg] Systolic Blood Pressure 2025-04-06 11:42:00.000 110 mm [Hg] Systolic Blood Pressure 2025-04-06 09:43:00.000 89 mm[ Hg] Systolic Blood Pressure 2025-03-31 15:21:00.000 120 mm [Hg] Systolic Blood Pressure 2025-03-31 12:38:00.000 118 mm [Hg] Systolic Blood Pressure 2025-03-30 14:20:00.000 112 mm [Hg] Diastolic Blood Pressure 2025-04-07 09:11:00.000 72 mm [Hg] Diastolic Blood Pressure 2025-04-06 11:42:00.000 58 mm [Hg] Diastolic Blood Pressure 2025-04-06 09:43:00.000 63 mm [Hg] Diastolic Blood Pressure 2025-03-31 15:21:00.000 64 mm [Hg] Diastolic Blood Pressure 2025-03-31 12:38:00.000 64 mm [Hg] Diastolic Blood Pressure 2025-03-30 14:20:00.000 60 mm [Hg] Plan of Treatment Planned Activity Planned Date Details Comments Future Scheduled Test SPEECH THE RAPIST TO EVALUATE SECONDARY TO DEFICITS/CONCERNS FOUND DURING EVALUATION INCLUDING DIFFICULTY WITH SWALLOWING AND VOICE PRODUCTION. [code = SPEECH THERAPIST TO EVALUATE SECONDARY TO DEFICITS/CONCERNS FOUND DURING EVALUATION INCLUDING DIFFICULTY WITH SWALLOWING AND VOICE PRODUCTION.] Future Scheduled Test PHYSICAL T HERAPIST TO EVALUATE PATIENT SECONDARY TO FUNCTIONAL DEFICITS/SAFETY CONCERNS. [code = PHYSICAL THERAPIST TO EVALUATE PATIENT SECONDARY TO FUNCTIONAL DEFICITS/SAFETY CONCERNS.] Future Scheduled Test OCCUPATION AL THERAPIST TO EVALUATE PATIENT SECONDARY TO DEFICITS/CONCERNS FOUND DURING EVALUATION INCLUDING FINE MOTOR SKILL DIFFICULTY, SHOULDER PAIN AND DISCOMFORT. [code = OCCUPATIONAL THERAPIST TO EVALUATE PATIENT SECONDARY TO DEFICITS/CONCERNS FOUND DURING EVALUATION INCLUDING FINE MOTOR SKILL DIFFICULTY, SHOULDER PAIN AND DISCOMFORT.] Future Scheduled Test PHYSICAL T HERAPIST TO ASSESS BEST PRACTICE INTERVENTIONS TO ASSIST PATIENTS TO IMPROVE OR STABILIZE MEDICAL STATUS AND PREVENT RE-HOSPITALIZATION. MEASURES INCLUDING REVIEW AND IDENTIFICATION OF CONCERNS FOR THE FOLLOWING AREAS: DRUG REGIMEN, ENVIRONMENTAL SAFETY ISSUES AND FALLS, PRESSURE ULCERS, PAIN, AND DISEASE MANAGEMENT. [code = PHYSICAL THERAPIST TO ASSESS BEST PRACTICE INTERVENTIONS TO ASSIST PATIENTS TO IMPROVE OR STABILIZE MEDICAL STATUS AND PREVENT RE-HOSPITALIZATION. MEASURES INCLUDING REVIEW AND IDENTIFICATION OF CONCERNS FOR THE FOLLOWING AREAS: DRUG REGIMEN, ENVIRONMENTAL SAFETY ISSUES AND FALLS, PRESSURE ULCERS, PAIN, AND DISEASE MANAGEMENT.] Future Scheduled Test PHYSICAL T HERAPY TO ESTABLISH /UPGRADE/DOWNGRADE THERAPEUTIC EXERCISE PROGRAM AND INSTRUCT PATIENT/CAREGIVER ON EXERCISE PRECAUTIONS WITH WRITTEN HOME PROGRAM. MAY INCLUDE PROM, AAROM, AROM, RROM APPROPRIATE TO IMPROVE FUNCTIONAL STRENGTH AND RANGE OF MOTION. [code = PHYSICAL THERAPY TO ESTABLISH /UPGRADE/DOWNGRADE THERAPEUTIC EXERCISE PROGRAM AND INSTRUCT PATIENT/CAREGIVER ON EXERCISE PRECAUTIONS WITH WRITTEN HOME PROGRAM. MAY INCLUDE PROM, AAROM, AROM, RROM APPROPRIATE TO IMPROVE FUNCTIONAL STRENGTH AND RANGE OF MOTION.] Future Scheduled Test PHYSICAL T HERAPY TO INSTRUCT PATIENT/CAREGIVER ON SAFE TRANSFER TECHNIQUES USING PROPER BODY MECHANICS AND EQUIPMENT. [code = PHYSICAL THERAPY TO INSTRUCT PATIENT/CAREGIVER ON SAFE TRANSFER TECHNIQUES USING PROPER BODY MECHANICS AND EQUIPMENT.] Future Scheduled Test PHYSICAL T HERAPY TO INSTRUCT PATIENT/CAREGIVER ON GAIT TRAINING TECHNIQUES USING APPROPRIATE ASSISTIVE DEVICE, PROPER BODY MECHANICS TO IMPROVE MOBILITY, AND PREVENT INJURY OF PATIENT AND/OR CAREGIVER. [code = PHYSICAL THERAPY TO INSTRUCT PATIENT/CAREGIVER ON GAIT TRAINING TECHNIQUES USING APPROPRIATE ASSISTIVE DEVICE, PROPER BODY MECHANICS TO IMPROVE MOBILITY, AND PREVENT INJURY OF PATIENT AND/OR CAREGIVER.] Future Scheduled Test PHYSICAL T HERAPY TO INSTRUCT PATIENT/CAREGIVER ON BALANCE AND BALANCE STRATEGIES TO IMPROVE SAFE MOBILITY AND REDUCE RISK FOR FALL AND INJURY [code = PHYSICAL THERAPY TO INSTRUCT PATIENT/CAREGIVER ON BALANCE AND BALANCE STRATEGIES TO IMPROVE SAFE MOBILITY AND REDUCE RISK FOR FALL AND INJURY] Future Scheduled Test OCCUPATION AL THERAPIST TO EVALUATE PATIENT SECONDARY TO FUNCTIONAL DEFICITS/SAFETY CONCERNS IDENTIFIED DURING EVALUATION OCCUPATIONAL THERAPIST TO ASSESS BEST PRACTICE INTERVENTIONS TO ASSIST PATIENTS TO IMPROVE OR STABILIZE MEDICAL STATUS AND PREVENT RE-HOSPITALIZATION. MEASURES INCLUDING REVIEW AND IDENTIFICATION OF CONCERNS FOR THE FOLLOWING AREAS: DRUG REGIMEN, ENVIRONMENTAL SAFETY ISSUES AND FALLS, PRESSURE ULCERS, PAIN, AND DISEASE MANAGEMENT. OCCUPATIONAL THERAPY TO ESTABLISH /UPGRADE/DOWNGRADE THERAPEUTIC EXERCISE PROGRAM AND INSTRUCT PATIENT/CAREGIVER ON EXERCISE PRECAUTIONS WITH WRITTEN HOME PROGRAM. MAY INCLUDE AAROM, AROM, RROM APPROPRIATE TO IMPROVE FUNCTIONAL STRENGTH AND/OR RANGE OF MOTION. OCCUPATIONAL THERAPY TO INSTRUCT PATIENT/CAREGIVER ON SAFE TRANSFER TECHNIQUES USING PROPER BODY MECHANICS AND EQUIPMENT TO ENHANCE PARTICIPATION IN ADLS. OCCUPATIONAL THERAPY TO PROVIDE PATIENT/CAREGIVER FINE MOTOR COORDINATION TRAINING TECHNIQUES TO ENHANCE PARTICIPATION IN ADLS. OCCUPATIONAL THERAPY TO INSTRUCT PATIENT/CAREGIVER ON BALANCE AND BALANCE STRATEGIES TO IMPROVE SAFETY DURING ACTIVITIES OF DAILY LIVING AND REDUCE RISK OF INJURIES AND FALLS. OCCUPATIONAL THERAPY TO ASSESS AND RECOMMEND HOME SAFETY ADAPTATIONS AND EDUCATE PATIENT/CAREGIVER ON FALL PREVENTION STRATEGIES TO ENHANCE PARTICIPATION IN ADLS. OCCUPATIONAL THERAPY TO ASSESS AND RECOMMEND APPROPRIATE ADAPTIVE EQUIPMENT AND INSTRUCT PATIENT/CAREGIVER ON SAFE, PROPER USAGE TO ENHANCE PARTICIPATION IN ADLS. OCCUPATIONAL THERAPY TO PROVIDE INSTRUCTION IN SAFE FUNCTIONAL WHEELCHAIR MOBILITY AND/OR PROVIDE RECOMMENDATIONS AND TRAINING FOR PROPER WHEELCHAIR FIT TO ENHANCE PARTICIPATION IN ADLS. OCCUPATIONAL THERAPY TO PROVIDE PATIENT/CAREGIVER WITH INSTRUCTIONS AND RECOMMENDATIONS TO IMPROVE ADLS INCLUDING CLOTHING MANAGEMENT, TOILET HYGIENE, WHILE USING APPROPRIATE ADAPTIVE DEVICES RECOMMENDED. [code = OCCUPATIONAL THERAPIST TO EVALUATE PATIENT SECONDARY TO FUNCTIONAL DEFICITS/SAFETY CONCERNS IDENTIFIED DURING EVALUATION OCCUPATIONAL THERAPIST TO ASSESS BEST PRACTICE INTERVENTIONS TO ASSIST PATIENTS TO IMPROVE OR STABILIZE MEDICAL STATUS AND PREVENT RE-HOSPITALIZATION. MEASURES INCLUDING REVIEW AND IDENTIFICATION OF CONCERNS FOR THE FOLLOWING AREAS: DRUG REGIMEN, ENVIRONMENTAL SAFETY ISSUES AND FALLS, PRESSURE ULCERS, PAIN, AND DISEASE MANAGEMENT. OCCUPATIONAL THERAPY TO ESTABLISH /UPGRADE/DOWNGRADE THERAPEUTIC EXERCISE PROGRAM AND INSTRUCT PATIENT/CAREGIVER ON EXERCISE PRECAUTIONS WITH WRITTEN HOME PROGRAM. MAY INCLUDE AAROM, AROM, RROM APPROPRIATE TO IMPROVE FUNCTIONAL STRENGTH AND/OR RANGE OF MOTION. OCCUPATIONAL THERAPY TO INSTRUCT PATIENT/CAREGIVER ON SAFE TRANSFER TECHNIQUES USING PROPER BODY MECHANICS AND EQUIPMENT TO ENHANCE PARTICIPATION IN ADLS. OCCUPATIONAL THERAPY TO PROVIDE PATIENT/CAREGIVER FINE MOTOR COORDINATION TRAINING TECHNIQUES TO ENHANCE PARTICIPATION IN ADLS. OCCUPATIONAL THERAPY TO INSTRUCT PATIENT/CAREGIVER ON BALANCE AND BALANCE STRATEGIES TO IMPROVE SAFETY DURING ACTIVITIES OF DAILY LIVING AND REDUCE RISK OF INJURIES AND FALLS. OCCUPATIONAL THERAPY TO ASSESS AND RECOMMEND HOME SAFETY ADAPTATIONS AND EDUCATE PATIENT/CAREGIVER ON FALL PREVENTION STRATEGIES TO ENHANCE PARTICIPATION IN ADLS. OCCUPATIONAL THERAPY TO ASSESS AND RECOMMEND APPROPRIATE ADAPTIVE EQUIPMENT AND INSTRUCT PATIENT/CAREGIVER ON SAFE, PROPER USAGE TO ENHANCE PARTICIPATION IN ADLS. OCCUPATIONAL THERAPY TO PROVIDE INSTRUCTION IN SAFE FUNCTIONAL WHEELCHAIR MOBILITY AND/OR PROVIDE RECOMMENDATIONS AND TRAINING FOR PROPER WHEELCHAIR FIT TO ENHANCE PARTICIPATION IN ADLS. OCCUPATIONAL THERAPY TO PROVIDE PATIENT/CAREGIVER WITH INSTRUCTIONS AND RECOMMENDATIONS TO IMPROVE ADLS INCLUDING CLOTHING MANAGEMENT, TOILET HYGIENE, WHILE USING APPROPRIATE ADAPTIVE DEVICES RECOMMENDED. ] Future Scheduled Test SPEECH THE RAPIST TO EVALUATE PATIENT COMMUNICATION, SWALLOWING, COGNITIVE DEFICIT. SPEECH THERAPY TO PROVIDE TREATMENT FOR IMPAIRED INTELLIGIBILITY OF SPEECH, DYSARTHRIA, AND IMPAIRED ABILITY TO INITIATE, INHIBIT AND/OR SEQUENCE SPEECH SOUND MUSCLE MOVEMENTS (APRAXIA). SPEECH THERAPY TO INSTRUCT PATIENT/CAREGIVER ON TECHNIQUES TO ADDRESS DYSPHAGIA AND PROVIDE EDUCATIONS AND TREATMENT STRATEGIES DESIGNED TO RESTORE A SAFE FUNCTIONAL SWALLOW. SPEECH THERAPY TO INSTRUCT PATIENT/CAREGIVER ON TECHNIQUES AND STRATEGIES FOR COGNITIVE IMPAIRMENTS INCLUDING ATTENTION, ORIENTATION, MEMORY, PROBLEM SOLVING, AND THOUGHT ORGANIZATION IN ORDER TO PROMOTE SAFETY AND INDEPENDENCE. SPEECH PATHOLOGIST TO ASSESS BEST PRACTICE INTERVENTIONS TO ASSIST PATIENTS TO IMPROVE OR STABILIZE MEDICAL STATUS AND PREVENT RE-HOSPITALIZATION. MEASURES INCLUDING REVIEW AND IDENTIFICATION OF CONCERNS FOR THE FOLLOWING AREAS: DRUG REGIMEN, ENVIRONMENTAL SAFETY ISSUES AND FALLS, PRESSURE ULCERS, PAIN, AND DISEASE MANAGEMENT. [code = SPEECH THERAPIST TO EVALUATE PATIENT COMMUNICATION, SWALLOWING, COGNITIVE DEFICIT. SPEECH THERAPY TO PROVIDE TREATMENT FOR IMPAIRED INTELLIGIBILITY OF SPEECH, DYSARTHRIA, AND IMPAIRED ABILITY TO INITIATE, INHIBIT AND/OR SEQUENCE SPEECH SOUND MUSCLE MOVEMENTS (APRAXIA). SPEECH THERAPY TO INSTRUCT PATIENT/CAREGIVER ON TECHNIQUES TO ADDRESS DYSPHAGIA AND PROVIDE EDUCATIONS AND TREATMENT STRATEGIES DESIGNED TO RESTORE A SAFE FUNCTIONAL SWALLOW. SPEECH THERAPY TO INSTRUCT PATIENT/CAREGIVER ON TECHNIQUES AND STRATEGIES FOR COGNITIVE IMPAIRMENTS INCLUDING ATTENTION, ORIENTATION, MEMORY, PROBLEM SOLVING, AND THOUGHT ORGANIZATION IN ORDER TO PROMOTE SAFETY AND INDEPENDENCE. SPEECH PATHOLOGIST TO ASSESS BEST PRACTICE INTERVENTIONS TO ASSIST PATIENTS TO IMPROVE OR STABILIZE MEDICAL STATUS AND PREVENT RE-HOSPITALIZATION. MEASURES INCLUDING REVIEW AND IDENTIFICATION OF CONCERNS FOR THE FOLLOWING AREAS: DRUG REGIMEN, ENVIRONMENTAL SAFETY ISSUES AND FALLS, PRESSURE ULCERS, PAIN, AND DISEASE MANAGEMENT. ] Goal Patient Goal - P ATIENT IS WORRIED THAT IF SHE DOES NOT IMPROVE , SHE WILL NOT BE ABLE TO STAY LIVING IN FACILITY. SHE WANTS TO STOP FALLING PATIENT IS CONCERNED WITH INCREASED CHOKING OF LIQUID AND DRINK FAMILY CONCERNED WITH DECREASED ABILITY TO UNDERSTAND WHAT SHE IS TRYING TO SPEAK Goal 2025-03-23 Patient Goal - P ATIENT IS WORRIED THAT IF SHE DOES NOT IMPROVE , SHE WILL NOT BE ABLE TO STAY LIVING IN FACILITY. SHE WANTS TO STOP FALLING PATIENT IS CONCERNED WITH INCREASED CHOKING OF LIQUID AND DRINK FMAILY CONCERNED WITH DECREASED ABILITY TO UNDERSTAND WHAT SHE IS TRYING TO SPEAK Goal 2025-01-21 Patient Goal - P ATIENT IS WORRIED THAT IF SHE DOES NOT IMPROVE , SHE WILL NOT BE ABLE TO STAY LIVING IN FACILITY. SHE WANTS TO STOP FALLING PATIENT IS CONCERNED WITH INCREASED CHOKING OF LIQUID AND DRINK FMAILY CONCERNED WITH DECREASED ABILITY TO UNDERSTAND WHAT SHE IS TRYING TO SPEAK Goal 2024-11-23 Patient Goal - P ATIENT IS WORRIED THAT IF SHE DOES NOT IMPROVE , SHE WILL NOT BE ABLE TO STAY LIVING IN FACILITY. SHE WANTS TO STOP FALLING PATIENT IS CONCERNED WITH INCREASED CHOKING OF LIQUID AND DRINK FMAILY CONCERNED WITH DECREASED ABILITY TO UNDERSTAND WHAT SHE IS TRYING TO SPEAK Goal 2024-09-25 Patient Goal - P ATIENT IS WORRIED THAT IF SHE DOES NOT IMPROVE , SHE WILL NOT BE ABLE TO STAY LIVING IN FACILITY. SHE WANTS TO STOP FALLING PATIENT IS CONCERNED WITH INCREASED CHOKING OF LIQUID AND DRINK FMAILY CONCERNED WITH DECREASED ABILITY TO UNDERSTAND WHAT SHE IS TRYING TO SPEAK Goal 2024-07-27 Patient Goal - P ATIENT IS WORRIED THAT IF SHE DOES NOT IMPROVE , SHE WILL NOT BE ABLE TO STAY LIVING IN FACILITY. SHE WANTS TO STOP FALLING PATIENT IS CONCERNED WITH INCREASED CHOKING OF LIQUID AND DRINK FMAILY CONCERNED WITH DECREASED ABILITY TO UNDERSTAND WHAT SHE IS TRYING TO SPEAK Goal 2024-03-26 Patient Goal - P ATIENT IS WORRIED THAT IF SHE DOES NOT IMPROVE , SHE WILL NOT BE ABLE TO STAY LIVING IN FACILITY. SHE WANTS TO STOP FALLING PATIENT IS CONCERNED WITH INCREASED CHOKING OF LIQUID AND DRINK FMAILY CONCERNED WITH DECREASED ABILITY TO UNDERSTAND WHAT SHE IS TRYING TO SPEAK Goal 2024-05-28 Patient Goal - P ATIENT IS WORRIED THAT IF SHE DOES NOT IMPROVE , SHE WILL NOT BE ABLE TO STAY LIVING IN FACILITY. SHE WANTS TO STOP FALLING PATIENT IS CONCERNED WITH INCREASED CHOKING OF LIQUID AND DRINK FMAILY CONCERNED WITH DECREASED ABILITY TO UNDERSTAND WHAT SHE IS TRYING TO SPEAK Goal 2024-03-06 Patient Goal - P ATIENT IS WORRIED THAT IF SHE DOES NOT IMPROVE , SHE WILL NOT BE ABLE TO STAY LIVING IN FACILITY. SHE WANTS TO STOP FALLING PATIENT IS CONCERNED WITH INCREASED CHOKING OF LIQUID AND DRINK FMAILY CONCERNED WITH DECREASED ABILITY TO UNDERSTAND WHAT SHE IS TRYING TO SPEAK Goal Provider Goal - SPEECH THERAPIST EVALUATION TO BE COMPLETED WITH RECOMMENDATIONS AND/OR WRITTEN TREATMENT PLAN OF CARE ESTABLISHED FOR THE PHYSICIANS SIGNATURE. Goal Provider Goal - PHYSICAL THERAPY EVALUATION TO BE COMPLETED WITH RECOMMENDATIONS AND/OR WRITTEN TREATMENT PLAN OF CARE ESTABLISHED FOR THE PHYSICIANS SIGNATURE Goal Provider Goal - OCCUPATIONAL THERAPY EVALUATION TO BE COMPLETED WITH RECOMMENDATIONS AND/OR WRITTEN TREATMENT PLAN OF CARE ESTABLISHED FOR THE PHYSICIANS SIGNATURE. Goal Provider Goal - PATIENT/CAREGIVER VERBALIZES UNDERSTANDING OF THE INITIAL BEST PRACTICE RECOMMENDATIONS. PHYSICIAN TO BE NOTIFIED APPROPRIATE FOR ANY CHANGES OR COMPLICATIONS THROUGHOUT THE CERTIFICATION PERIOD. Goal Provider Goal - PATIENT/CAREGIVER WILL PERFORM THERAPEUTIC EXERCISE/S AND DEMONSTRATE PARTICIPATION IN A HOME PROGRAM. Goal Provider Goal - PATIENT/CAREGIVER WILL DEMONSTRATE SAFE TRANSFERS USING APPROPRIATE ASSISTIVE DEVICE, BODY MECHANICS AND EQUIPMENT. Goal Provider Goal - PATIENT/CAREGIVER WILL DEMONSTRATE IMPROVED GAIT TECHNIQUES TO MINIMIZE RISK OF INJURY. Goal Provider Goal - PATIENT/CAREGIVER WILL DEMONSTRATE IMPROVED BALANCE AND REDUCE THE RISK OF FALLS AND INJURY. Goal Provider Goal - OCCUPATIONAL THERAPIST TO EVALUATE PATIENT SECONDARY TO FUNCTIONAL DEFICITS/SAFETY CONCERNS IDENTIFIED DURING EVALUATION. PATIENT/CAREGIVER VERBALIZES UNDERSTANDING OF THE INITIAL BEST PRACTICE RECOMMENDATIONS. PHYSICIAN TO BE NOTIFIED APPROPRIATE FOR ANY CHANGES OR COMPLICATIONS THROUGHOUT THE CERTIFICATION PERIOD. PATIENT/CAREGIVER WILL PERFORM THERAPEUTIC EXERCISE/S AND DEMONSTRATE PARTICIPATION IN A HOME PROGRAM. PATIENT/CAREGIVER WILL DEMONSTRATE SAFE TRANSFERS USING APPROPRIATE ASSISTIVE DEVICE, BODY MECHANICS AND EQUIPMENT. PATIENT/CAREGIVER WILL DEMONSTRATE IMPROVED FINE MOTOR COORDINATION. PATIENT/CAREGIVER WILL DEMONSTRATE IMPROVED BALANCE AND REDUCE THE RISK OF FALLS AND INJURY. CAREGIVER/PATIENT WILL DEMONSTRATE/VERBALIZE UNDERSTANDING OF RECOMMENDATIONS TO INCREASE SAFETY IN THE HOME AND FALL PREVENTION PATIENT/CAREGIVER WILL DEMONSTRATE PROPER USAGE OF APPROPRIATE ADAPTIVE EQUIPMENT. PATIENT/CAREGIVER WILL DEMONSTRATE IMPROVED WHEELCHAIR MOBILITY AND FITTING. PATIENT/CAREGIVER WILL DEMONSTRATE IMPROVED ABILITY TO PERFORM ACTIVITIES OF DAILY LIVING. Goal Provider Goal - SPEECH THERAPY EVALUATION TO BE COMPLETED WITH RECOMMENDATIONS AND/OR WRITTEN TREATMENT PLAN OF CARE ESTABLISHED FOR THE PHYSICIANS SIGNATURE. PATIENT/CAREGIVER WILL DEMONSTRATE IMPROVED SPEECH INTELLIGIBILITY PHRASE LEVEL AT 80% SELF CUES. 05/07/25 PATIENT/CAREGIVER WILL DEMONSTRATE IMPROVED SWALLOW TECHNIQUE WITH BITE SIZE DIET AND THIN LIQUIDS AT 90% WITH NO OVERT SIGN OR SYMPTOMS ASPIRATION. 04/30/25 PATIENT/CAREGIVER WILL DEMONSTRATE IMPROVED COGNITION FOR THOUGHT ORGANIZATION AND PROBLEM SOLVING SKILLS AT 80%. 05/07/25 PATIENT/CAREGIVER VERBALIZES UNDERSTANDING OF THE INITIAL BEST PRACTICE RECOMMENDATIONS. PHYSICIAN TO BE NOTIFIED APPROPRIATE FOR ANY CHANGES OR COMPLICATIONS THROUGHOUT THE CERTIFICATION PERIOD. Encounters Start Date/Time End Date/Time Encounter Type Admission Type Attending [facility] Care Department Encounter ID Discharge Date Discharge Status Discharge Condition Discharge Reason Percent Goals Met 2025-03-26 00:00:00 2025 00:00:00 Outpatient RECERTIFIC ATION [facility] [id number] 15.38
--- NOTE | 2025-04-13 06:14 | WPDHPUPDATE1 ---
History and Physical Update Update Date/Time: 04/13/25 06:14 History and Physical has been reviewed, including an updated exam of the patient. There are NO changes in the patient's condition. Risks, benefits, and alternatives have been discussed and questions answered. Patient agrees to proceed with procedure.
[2025-04-13] MEDS: LACTATED RINGERS 1,000 ML 30 ML IV CONT (11:00)
--- NOTE | 2025-04-13 11:15 | WPDANESEPPF ---
Anes - Initial Pre Proc Eval Procedure: Operation Date: 04/13/25 12:00 Proposed Procedures p Cystoscopy, Left Ureteroscopy, Possible Left Retrograde Pyelogram, Left Stone Extraction, Holmium Laser Lithotripsy, Left Stent Placement - Ta Denise MD Date/Time: 04/13/25 11:15 Surgeon: Ta Denise MD Pre Op Diagnosis: Left Ureteral Stone Patient Data Age: 74 Gender: F Height: 1.65 m Weight: 76.9 kg Last Vital Signs Temp 36.9 C 04/13/25 11:04 Pulse 74 04/13/25 11:04 BP 154/75 H 04/13/25 11:04 Pulse Ox 96 04/13/25 11:04 O2 Del Method Room Air 04/13/25 11:04 Allergies Allergy/AdvReac Type Severity Reaction Status Date / Time codeine Allergy Unknown Unknown Verified 04/13/25 10:57 meperidine (From Demerol) Allergy Unknown Verified 04/13/25 10:57 zolpidem (From Ambien) Allergy Unknown Verified 04/13/25 10:57 Home Medications ?Medication ?Instructions ?Recorded ?Confirmed ?Type Teva-Doperidone 10 mg PO USEASDIRECTD 06/06/21 04/13/25 History aspirin 81 mg tablet 81 mg PO DAILY 06/06/21 04/12/25 History carbidopa 25 mg-levodopa 100 mg 2.5 tablet PO USEASDIRECTD 06/06/21 04/13/25 History tablet montelukast 10 mg tablet 10 mg PO HS 06/06/21 04/12/25 History trazodone 50 mg tablet 100 mg PO HS 06/06/21 04/12/25 History bupropion HCl 150 mg 24 hr tablet, 150 mg PO HS 04/12/25 04/13/25 History extended release (Wellbutrin XL) escitalopram oxalate 20 mg tablet 20 mg PO DAILY 04/12/25 04/13/25 History methenamine hippurate 1 gram tablet 1 g PO DAILY urinary 04/12/25 04/13/25 History nitrofurantoin macrocrystal 100 mg 100 mg PO HS 04/12/25 04/12/25 History capsule rivastigmine 4.6 mg/24 hour 4.6 mg transdermal DAILY 04/12/25 04/12/25 History transdermal patch (Exelon Patch) vibegron 75 mg tablet (Gemtesa) 75 mg PO DAILY 04/12/25 04/12/25 History Patient hx anesthesia problems: none Family hx anesthesia problems: none Results Review: All pre-operative results and documents have been reviewed as part of the pre-operative evaluation. [facility] Past Medical History Medical History Hyperlipidemia Insomnia [place] Parkinsons disease Hypertension Surgical History Surgical History History of cataract surgery Family History Family History Father Family history of emphysema Mother Family history of congestive heart failure Other Cerebrovascular accident Social History Social History Smoking status: Never smoker Alcohol intake: current Alcohol use details: 1 per 6 mos Substance use: never Living arrangements: assisted living Additional living arrangements comments: [facility] concerns: No Anes - Eval Final PreProcedure Day of Procedure 04/13/25 11:15 Patient weight: overweight Lungs: clear to auscultation Airway: Mallampati scale class III Neurological: lethargic Last oral intake: >/= 8 hours ASA classification: III Emergent: no Anesthetic plan: proceed Anesthesia type and monitoring: general LMA and standard monitoring Results Review: All pre-operative results and documents have been reviewed as part of the pre-operative evaluation. Informed Consent: The patient's anesthetic plan and its attendant risks and benefits were discussed with the patient/family/POA. Questions were solicited and answers provided to the satisfaction of the patient/family/POA.
[2025-04-13] MEDS: ceFAZolin 2 GM/D5W 50 ML 2 GM/50 ML BAG IVPB (12:06)
[2025-04-13] MEDS: LIDOCAINE 2% GEL UROJET 10 ML PKG MUCOUS MEM (12:07)
--- NOTE | 2025-04-13 12:40 | S_PTH ---
PATIENT: Miriam Moreno LOC: [facility] U#:[id number] AGE/SX: 74/F ROOM: RE04/13/[address]: Ta Denise MD : 1950 BED: DIS: 04/13/2025 SPEC #: [id number] RECD: 04/13/25 12:57 STATUS: RICK REQ #: [id number] LIUDMILA: 04/13/25 12:[address]: Ta Denise DEPT: [facility] Surgical RECD BY: Daniel Hoover ENTERED: 04/13/25 12:58 SP TYPE: Surgical OTHR DR: Yannick Lange MD Tissues: A - Stone Procedures: Gross Exam Level 1 Crystalline Analysis
--- NOTE | 2025-04-13 13:08 | W.PM.PROC2 ---
Procedure Note - Detailed Date of Procedure 04/13/25 Pre-op Diagnosis Left ureteral stone / Left renal stone Post-op Diagnosis Other (1. Spontaneously passed left ureteral stone 2. Left renal stone) Procedure Performed Cystoscopy, left ureteroscopy with stone extraction Surgeon Ta Denise MD Anesthesia General Description of Procedure Patient is brought to the operative suite where she was prepped and draped in routine sterile fashion while in dorsal lithotomy position after the uneventful induction of a general LMA anesthetic. Cystoscopy was undertaken with a 19 F rigid cystoscope. Bladder neck and urethra endoscopically normal. Bladder shows trabeculation without mucosal defects. There is no intravesical foreign body or neoplasm. She has a single orthotopic ureteral orifice bilaterally. A 0.035 in glidewire was advanced into her left renal pelvis and the distal ureter was dilated with an 8 F 10 F dilator. Ureteroscopy was 1st undertaken with a short tapered semi-rigid ureteral scope. There are no stones in her distal or mid ureter via rigid ureteroscopy. I can see an area of mucosal hyperemia suggestive of where the stone was temporarily obstructed. She has a known small stone in her left kidney. I placed a 7.5 F flexible ureteral scope. I carefully and inspected all calices and found 1 5 mm stone which was extracted with a 1.9 F disposable stone basket with ease. Because of the ease of this manipulation I opted not to place ureteral stent. Scopes and wires removed and she was taken recovery room in good condition Drains No Packing No Pathology Yes Complications No immediate complications
[2025-04-13] MEDS: ONDANSETRON INJ 4 MG/2 ML VIAL IV PUSH (14:56)
--- NOTE | 2025-04-13 15:07 | SUR.PHASEII ---
DR. ARRIAZA NOTIFIED RE: PATIENT C/O SEVERE GRIPPING PAIN TO UPPER MID BACK AND LOWER BACK THAT HAS LASTED ABOUT 5-10 MINUTES. NO SOB OR CHANGE IN VITAL SIGNS. DR. ARRIAZA INSTRUCTED TO GIVE HER PAIN MED.
[2025-04-13] MEDS: fentaNYL CITRATE INJ (*CRX) 100 MCG/2 ML VIAL 25 MCG IV PUSH ×2 (15:24→15:55)
--- NOTE | 2025-04-13 15:25 | SUR.PHASEII ---
UPON ARRIVAL TO OP AREA, PATIENT INCONTINENT OF URINE; CLEANED AND NEW DEPENDS DIAPER APPLIED; PATIENT ABLE TO LIFT HIPS AND MOVE TO HELP WITH CHANGING HER. BECAME SHORT OF BREATH WITH ACTIVITY; DAUGHTER ASKED ABOUT THIS; DAUGHTER SAID HER MOM CAN BECOME SOB WITH EXERTION. PATIENT SHAKING MORE THAN USUAL; BERTO HUGGER PLACED WHICH HELPED CALM HER DOWN; SOB RESOLVED QUICKLY AFTER. DAUGHTER GAVE PATIENT HER PARKINSON'S MED WHICH WAS DELAYED D/T PROCEDURE.
--- NOTE | 2025-04-13 16:35 | SUR.PHASEII ---
1550 PATIENT DEPENDS DIAPER CHANGED AND DRESSED BY DAUGHTER AND THIS RN. PATIENT NOW DENIES PAIN/NAUSEA. APPEARS CALMER. PARKINSON MOVEMENTS THROUGHOUT STAY, INCREASED WHEN IN PAIN/NAUSEOUS, LESS WHEN COMFORTABLE. USUALLY EYES CLOSED WHICH IS NORMAL PER DAUGHTER; OPENS EYES OCCASIONALLY.
== END 2025-04-13 16:30 | disposition home or self-care (01) ==
PROVIDERS: PCP Internal Medicine; Visit Provider Urology
PROC: (CPT 52352; principal; 2025-04-13 12:00)
DX: N20.0 Calculus of kidney (principal)
CPT/HCPCS: 52352; 82365; 88300; 99199; C1769; J0690; J2003; J2405; J2704; J3010; J7120; Q9966

== ENCOUNTER 2025-05-04 15:28 | Outpatient (CLI) | payer MEDICARE, SELFPAY ==
--- NOTE | ~2025-05-04 | XR_ITS ---
EXAM: XR shoulder RT min 2V, XR shoulder LT min 2V DATE: 05/04/2025 16:07 HISTORY: bl shoulder pain chronic with NKI . COMPARISON: X-ray right shoulder 09/16/2012. FINDINGS: Decreased mineralization. No fracture or dislocation. No lytic or blastic lesion. Mild daniel ateral AC joint degenerative change. Moderate bilateral glenohumeral joint degenerative change, sligh tly worse on the right. Multiple ossified bodies project over the superior cuff on the right. Small c alcifications in the distal left cuff. No erosion or periosteal change. Soft tissues within normal li mits. Bilateral stimulator packs. IMPRESSION: Osteopenia. Bilateral mild AC joint and moderate glenohumeral joint osteoarthritis. Multi ple loose bodies in the superior right joint versus dystrophic ossification in the cuff. Mild left ro tator cuff calcific tendinitis. Reviewed, dictated and finalized at location K. IMPRESSION: Osteopenia. Bilateral mild AC joint and moderate glenohumeral joint osteoarthritis. Multiple loose bodies in the superior right joint versus dystr ophic ossification in the cuff. Mild left rotator cuff calcific tendinitis.
--- OUTSIDE RECORDS SUMMARY | 2025-05-04 15:32 | XMS_ITS | Clinical Summary ---
Author Organization [facility] Address [facility]ly [facility] [place] [address] Care Team Providers Care Snuff Container Inspector Name Role Phone Yannick Lange MD Primary Care Provider [phone] Allergies Active Allergy Reactions Criticality Noted Date [...] - 04/08/2025 11:59 PM CDT Hospital Encounter [facility] [address] [facility] [place] [address] Benny Lubin PA Discharge Disposition: Home or [...] Sex Assigned at Female 11/27/2024 5:47 PM CASH MANAGEMENT SPECIALIST Legal Sex Female 5:55 PM CASH MANAGEMENT SPECIALIST Gender Identity Not on file Sexual Orientation Not on file Last Filed Vital Signs Vital Sign Reading Time Taken Comments Blood Pressure 114/87 11/27/2024 5:45 PM CASH MANAGEMENT SPECIALIST Pulse 92 11/27/2024 5:45 PM CASH MANAGEMENT SPECIALIST Temperature 36.6 C (97.8 F) 11/27/2024 5:45 PM CASH MANAGEMENT SPECIALIST Respiratory Rate 18 11/27/2024 5:45 PM CASH MANAGEMENT SPECIALIST Oxygen Saturation 95% 11/27/2024 5:45 PM CASH MANAGEMENT SPECIALIST Inhaled Oxygen Concentration - - Weight 80.7 kg (178 lb) 11/27/2024 5:45 PM CASH MANAGEMENT SPECIALIST Height 162.6 cm (5' 4) 11/27/2024 5:45 PM CASH MANAGEMENT SPECIALIST Body Mass Index 30.55 11/27/2024 5:45 PM CASH MANAGEMENT SPECIALIST Plan of Treatment Health Maintenance Due Date [...] 1:54 PM Narrative 04/08/2025 2:05 PM CDT [address] [place] [address] EXAMINATION: CT Abdomen and Pelvis without contrast [...] Procedure Note John Franklin MD - 04/08/2025 [place] [id number] [facility] [place] [address] EXAMINATION: CT Abdomen and Pelvis without contrast [...] 3:24 PM Narrative 04/08/2025 3:26 PM CDT [address] [place] [address] Examination: Abdomen 1 view Exam time: 04/08/2025 [...] Procedure Note John Franklin MD - 04/08/[address] [place] [address] Examination: Abdomen 1 view Exam time: 04/08/2025 [...] Documents on File Type Date Recorded Patient Respiratory Therapy Instructor Expl anation Advance Directives and Livin g Will 03/02/2024 9:18 AM Advance Directives and Livin g Will 03/02/2024 9:18 AM Care Teams Snuff Container Inspector Relationship Specialty Start Date End Date Yannick Lange MD [address] [place] [address] PCP - General INTERNAL MEDICINE 04/20/19
--- OUTSIDE RECORDS SUMMARY | 2025-05-04 15:33 | XMS_ITS | Clinical Summary ---
Author Organization Unknown Care Team Providers Care Veterinary Practice Manager Name Role Phone DAVE FURNACE AND WASH EQUIPMENT OPERATOR, YASMINE Unavailable Unavailable EMILY OXYGEN THERAPY TECHNICIAN, NELLIE Unavailable Unavailabl e RAY OT, FLORENCIO Unavailable Unavailable GRANT RN, FABIEN Unavailable Unavailable JANELLE PT, LACIE Unavailable Unavailable JOHN PT, TJ Unavailable Unavailable RISHABH PT, PARISH Unavailable Unavailabl e Payers Payer Name Policy Type Policy Number Effective Date Expira tion Date [employer] MEDICARE ADVANTAGE FFS - ORDER DRIVEN [id number] ZZZ [employer] MEDICARE ADVANTAGE FFS [id number] MEDICARE - [place] - PDGM [id number] Problems Condition Name Condition Details Condition Category [...] EXCLUSION AND REJECTION Active 10-14 00:00: 00 SENIOR ORACLE DATABASE ADMINISTRATOR (CURRENT) USE OF ASPIRIN Active 10-14 00:00: [...] 05-20 00:00: 00 12-10 23:59 :00 No [id number] 1 capsule DIRECTED 1 capsule DIRECTED (route: oral) Med Classific ation: Central Nervous System Agents aspirin 81 mg tablet,danita yed release 05-20 00:00: 00 12-10 23:59 :00 No [id number] 1 tablet DAILY 1 tablet DAILY (route: oral) Med Classific ation: Hematolog ical Agents Ca phos-cranbe rry-milk thistle capsule 05-20 00:00: 00 11-15 23:59 :00 No [id number] 1 capsule DAILY 1 capsule DAILY (route: oral) Med Classific ation: Alternati ve Therapy carbidopa 25 mg-levodopa 100 mg tablet 05-20 00:00: 00 12-10 23:59 :00 No [id number] 2.5 tablet DIRECTED 2.5 tablet DIRECTED (route: oral) Med Classific ation: Central Nervous System Agents montelukast 10 mg tablet 05-20 00:00: 00 12-10 23:59 :00 No [id number] 1 tablet BEDTIME 1 tablet BEDTIME (route: oral) Med Classific ation: Respirato ry Therapy Agents paroxetine 40 mg tablet 05-20 00:00: 00 12-10 23:59 :00 No [id number] 1 tablet 2 TIMES DAILY 1 tablet 2 TIMES DAILY (route: oral) Med Classific ation: Central Nervous System Agents trazodone 50 mg tablet 8-07 00:00: 00 12-10 23:59 :00 No [id number] 1 tablet BEDTIME 1 tablet BEDTIME (route: oral) Med Classific ation: Central Nervous System Agents Dulcolax (bisacodyl) 5 mg tablet,danita yed release 8-20 00:00: 00 12-10 23:59 :00 No [id number] 1 tablet DAILY 1 tablet DAILY (route: oral) Med Classific ation: Gastroint estinal Therapy Agents escitalopra m 10 mg tablet 2-24 00:00: 00 12-17 00:00 :00 No [id number] Per instruc tions Per instructio ns (route: oral) Med Classific ation: Central Nervous System Agents paroxetine 40 mg tablet 2-04 00:00: 00 02-12 23:59 :00 No [id number] 1 tablet 2 TIMES A DAY 1 tablet 2 TIMES A DAY (route: oral) Med Classific ation: Central Nervous System Agents trazodone 50 mg tablet 2-04 00:00: 00 02-12 23:59 :00 No [id number] 1 tablet AT BEDTIME 1 tablet AT BEDTIME (route: oral) Med Classific ation: Central Nervous System Agents amantadine HCl 100 mg tablet 3-06 00:00: 00 01-27 23:59 :00 No [id number] 1 tablet 2 TIMES DAILY 1 tablet 2 TIMES DAILY (route: oral) Med Classific ation: Central Nervous System Agents aspirin 81 mg tablet,danita yed release 3-06 00:00: 00 01-27 23:59 :00 No [id number] 1 tablet DAILY 1 tablet DAILY (route: oral) Med Classific ation: Hematolog ical Agents carbidopa 25 mg-levodopa 100 mg disintegrat ing tablet 3-06 00:00: 00 01-27 23:59 :00 No [id number] Per instruc tions DIRECTED Per instructio ns DIRECTED (route: oral) Med Classific ation: Central Nervous System Agents montelukast 10 mg tablet -06 00:00: 00 01-27 23:59 :00 No [id number] 1 tablet DAILY 1 tablet DAILY (route: oral) Med Classific ation: Respirato ry Therapy Agents Stool Softener 100 mg capsule 3-06 00:00: 00 01-27 23:59 :00 No [id number] 1 capsule 2 TIMES DAILY 1 capsule 2 TIMES DAILY (route: oral) Med Classific ation: Gastroint estinal Therapy Agents escitalopra m 10 mg tablet 02-15 00:00: 00 01-27 23:59 :00 No [id number] 1 tablet DAILY 1 tablet DAILY (route: oral) Med Classific ation: Central Nervous System Agents trazodone 50 mg tablet 02-15 00:00: 00 01-27 23:59 :00 No [id number] 2 tablet BEDTIME 2 tablet BEDTIME (route: oral) Med Classific ation: Central Nervous System Agents prednisone 10 mg tablet 15 00:00: 00 03-08 23:59 :00 No [id number] Per instruc tions DAILY Per instructio ns DAILY (route: oral) Med Classific ation: Endocrine trazodone 50 mg tablet 01-20 00:00: 00 Yes [id number] 2 tablet BEDTIME 2 tablet BEDTIME (route: oral) Med Classific ation: Central Nervous System Agents amantadine HCl 100 mg tablet 01-30 00:00: 00 10-27 23:59 :00 No [id number] 1 tablet 2 TIMES DAILY 1 tablet 2 TIMES DAILY (route: oral) Med Classific ation: Central Nervous System Agents aspirin 81 mg tablet,danita yed release 01-30 00:00: 00 Yes [id number] 1 tablet DAILY 1 tablet DAILY (route: oral) Med Classific ation: Hematolog ical Agents carbidopa 25 mg-levodopa 100 mg tablet 01-30 00:00: 00 03-05 23:59 :00 No [id number] Per instruc tions DIRECTED Per instructio ns DIRECTED (route: oral) Med Classific ation: Central Nervous System Agents escitalopra m 20 mg tablet 01-30 00:00: 00 Yes [id number] 1 tablet DAILY 1 tablet DAILY (route: oral) Med Classific ation: Central Nervous System Agents montelukast 10 mg tablet 01-30 00:00: 00 Yes [id number] 1 tablet BEDTIME 1 tablet BEDTIME (route: oral) Med Classific ation: Respirato ry Therapy Agents DOMPERIDONE 10mg 01-30 00:00: 00 03-05 23:59 :00 No [id number] 1 tablet DIRECTED 1 tablet DIRECTED (route: BY MOUTH) Med Classific ation: ANTIDIARR HEALS amoxicillin 875 mg-potassiu m clavulanate 125 mg tablet 03-05 00:00: 00 03-12 23:59 :00 No [id number] 1 tablet EVERY 12 HOURS 1 tablet EVERY 12 HOURS (route: oral) Med Classific ation: Anti-Infe ctive Agents carbidopa 25 mg-levodopa 100 mg tablet 03-05 00:00: 00 Yes [id number] Per instruc tions DIRECTED Per instructio ns DIRECTED (route: oral) Med Classific ation: Central Nervous System Agents Florastor 250 mg capsule 03-05 00:00: 00 03-15 23:59 :00 No [id number] 1 capsule 2 TIMES DAILY 1 capsule 2 TIMES DAILY (route: oral) Med Classific ation: Gastroint estinal Therapy Agents Cipro 250 mg tablet 03-17 00:00: 00 03-20 23:59 :00 No [id number] 1 tablet EVERY 12 HOURS 1 tablet EVERY 12 HOURS (route: oral) Med Classific ation: Anti-Infe ctive Agents clotrimazol e 1 % topical cream 03-17 00:00: 00 Yes [id number] Per instruc tions 2 TIMES DAILY Per instructio ns 2 TIMES DAILY (route: topical) Med Classific ation: Dermatolo gical ciprofloxac in 250 mg tablet 12 00:00: 00 04-03 23:59 :00 No [id number] 1 tablet EVERY 12 HOURS 1 tablet EVERY 12 HOURS (route: oral) Med Classific ation: Anti-Infe ctive Agents Daily Probiotic (S. boulardii) 250 mg capsule 12 00:00: 00 04-03 23:59 :00 No [id number] 1 capsule 2 TIMES DAILY 1 capsule 2 TIMES DAILY (route: oral) Med Classific ation: Gastroint estinal Therapy Agents fluconazole 100 mg tablet 04-18 00:00: 00 04-24 23:59 :00 No [id number] Per instruc tions DIRECTED Per instructio ns DIRECTED (route: oral) Med Classific ation: Anti-Infe ctive Agents metronidazo le 500 mg tablet 04-18 00:00: 00 04-24 23:59 :00 No [id number] 1 tablet DAILY 1 tablet DAILY (route: oral) Med Classific ation: Anti-Infe ctive Agents Gemtesa 75 mg tablet 08 00:00: 00 05-04 23:59 :00 No [id number] 1 tablet DAILY 1 tablet DAILY (route: oral) Med Classific ation: Genitouri nary Therapy bupropion HCl 75 mg tablet 7-17 00:00: 00 Yes [id number] 1 tablet DAILY 1 tablet DAILY (route: oral) Med Classific ation: Central Nervous System Agents Gemtesa 75 mg tablet 8-14 00:00: 00 Yes [id number] 1 tablet DAILY 1 tablet DAILY (route: oral) Med Classific ation: Genitouri nary Therapy methenamine hippurate 1 gram tablet 1-14 00:00: 00 Yes [id number] 1 tablet 2 TIMES DAILY 1 tablet 2 TIMES DAILY (route: oral) Med Classific ation: Genitouri nary Therapy nitrofurant oin 100 mg tablet 1-14 00:00: 00 12-07 23:59 :00 No [id number] 100 mg BEDTIME 100 mg BEDTIME (route: oral) Med Classific ation: Genitouri nary Therapy rivastigmin e 4.6 mg/24 hour transdermal patch 01-13 00:00: 00 Yes [id number] 1 patch, transde rmal 24 hours DAILY 1 patch, transderma l 24 hours DAILY (route: transderma l) Med Classific ation: Cognitive Disorder Therapy Immunizations Ordered Immunization Name Filled Immunization Name Date Status Comments Refusal Reason INFLUENZA, TIV (INACTIVATED) 2023-07-09 00:00:00 PNEUMOCOCCAL (PPV), PPV 2021-02-07 00:00:00 Vital Signs Vital Name Observation Time Observation Value Commen ts Temperature 2025-05-03 16:06:00.000 98.2 [degF] Temperature 2025-04-29 17:07:00.000 97.7 [degF] Temperature 2025-04-28 13:35:00.000 97.6 [degF] Temperature 2025-04-21 13:01:00.000 98.1 [degF] Temperature 2025-04-20 13:54:00.000 97 [degF] Temperature 2025-04-20 11:20:00.000 98.3 [degF] Temperature 2025-04-14 12:16:00.000 97.9 [degF] Temperature 2025-04-07 09:11:00.000 98.1 [degF] Temperature 2025-04-06 11:42:00.000 98.5 [degF] Temperature 2025-04-06 09:43:00.000 98.2 [degF] Temperature 2025-03-31 15:21:00.000 97.5 [degF] Temperature 2025-03-31 12:38:00.000 97.9 [degF] Temperature 2025-03-30 14:20:00.000 97.3 [degF] Pulse 2025-05-03 16:06:00.000 74 /min Pulse 2025-04-29 17:07:00.000 72 /min Pulse 2025-04-28 13:35:00.000 76 /min Pulse 2025-04-21 13:01:00.000 78 /min Pulse 2025-04-20 13:54:00.000 86 /min Pulse 2025-04-20 11:20:00.000 75 /min Pulse 2025-04-14 12:16:00.000 72 /min Pulse 2025-04-07 09:11:00.000 74 /min Pulse 2025-04-06 11:42:00.000 75 /min Pulse 2025-04-06 09:43:00.000 80 /min Pulse 2025-03-31 15:21:00.000 68 /min Pulse 2025-03-31 12:38:00.000 72 /min Pulse 2025-03-30 14:20:00.000 78 /min O2 Saturation (%) 2025-04-20 13:54:00.000 98 % O2 Saturation (%) 2025-04-20 11:20:00.000 95 % O2 Saturation (%) 2025-04-06 11:42:00.000 94 % O2 Saturation (%) 2025-04-06 09:43:00.000 94 % O2 Saturation (%) 2025-03-30 14:23:00.000 95 % Respirations 2025-05-03 16:06:00.000 18 /min Respirations 2025-04-29 17:07:00.000 18 /min Respirations 2025-04-28 13:35:00.000 18 /min Respirations 2025-04-21 13:01:00.000 18 /min Respirations 2025-04-20 13:54:00.000 18 /min Respirations 2025-04-20 11:20:00.000 18 /min Respirations 2025-04-14 12:16:00.000 18 /min Respirations 2025-04-07 09:11:00.000 18 /min Respirations 2025-04-06 11:42:00.000 18 /min Respirations 2025-04-06 09:43:00.000 17 /min Respirations 2025-03-31 15:21:00.000 16 /min Respirations 2025-03-31 12:38:00.000 18 /min Respirations 2025-03-30 14:20:00.000 16 /min Systolic Blood Pressure 2025-05-03 16:06:00.000 120 mm [Hg] Systolic Blood Pressure 2025-04-29 17:07:00.000 118 mm [Hg] Systolic Blood Pressure 2025-04-28 13:35:00.000 104 mm [Hg] Systolic Blood Pressure 2025-04-21 13:01:00.000 128 mm [Hg] Systolic Blood Pressure 2025-04-20 13:54:00.000 114 mm [Hg] Systolic Blood Pressure 2025-04-20 11:20:00.000 91 mm[ Hg] Systolic Blood Pressure 2025-04-14 12:16:00.000 128 mm [Hg] Systolic Blood Pressure 2025-04-07 09:11:00.000 168 mm [Hg] Systolic Blood Pressure 2025-04-06 11:42:00.000 110 mm [Hg] Systolic Blood Pressure 2025-04-06 09:43:00.000 89 mm[ Hg] Systolic Blood Pressure 2025-03-31 15:21:00.000 120 mm [Hg] Systolic Blood Pressure 2025-03-31 12:38:00.000 118 mm [Hg] Systolic Blood Pressure 2025-03-30 14:20:00.000 112 mm [Hg] Diastolic Blood Pressure 2025-05-03 16:06:00.000 68 mm [Hg] Diastolic Blood Pressure 2025-04-29 17:07:00.000 68 mm [Hg] Diastolic Blood Pressure 2025-04-28 13:35:00.000 62 mm [Hg] Diastolic Blood Pressure 2025-04-21 13:01:00.000 62 mm [Hg] Diastolic Blood Pressure 2025-04-20 13:54:00.000 68 mm [Hg] Diastolic Blood Pressure 2025-04-20 11:20:00.000 54 mm [Hg] Diastolic Blood Pressure 2025-04-14 12:16:00.000 64 mm [Hg] Diastolic Blood Pressure 2025-04-07 09:11:00.000 [...] ULCERS, PAIN, AND DISEASE MANAGEMENT. ] Goal 2024-03-06 Patient Goal - P ATIENT [...] WHAT SHE IS TRYING TO SPEAK Goal Patient Goal - P ATIENT IS [...] End Date/Time Encounter Type Admission Type Attending [facility] Care Department Encounter ID Discharge Date Discharge Status Discharge Condition Discharge Reason Percent Goals Met 2025-03-26 00:00:00 2025 00:00:00 Outpatient RECERTIFIC [facility] [id number] 23.08
--- OUTSIDE RECORDS SUMMARY | 2025-05-04 15:33 | XMS_ITS | Clinical Summary ---
Author Organization Unknown Care Team Providers Care Assistant Pastry Chef Name Role Phone DAVE CORRUGATOR OPERATOR, YASMINE Unavailable Unavailable EMILY STORE RECEIVING CLERK, NELLIE Unavailable Unavailabl e RAY OT, FLORENCIO Unavailable Unavailable GRANT RN, FABIEN Unavailable Unavailable JANELLE PT, LACIE Unavailable Unavailable JOHN PT, TJ Unavailable Unavailable RISHABH PT, PARISH Unavailable Unavailabl e Payers Payer Name Policy Type Policy Number Effective Date Expira tion Date [employer] MEDICARE ADVANTAGE FFS - ORDER DRIVEN [id number] ZZZ [employer] MEDICARE ADVANTAGE FFS [id number] MEDICARE - [place] - PDGM [id number] Problems Condition Name Condition Details Condition Category [...] EXCLUSION AND REJECTION Active 10-14 00:00: 00 SYSTEMS 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 PLANNER (CURRENT) USE OF ASPIRIN Active 10-14 00:00: [...] 05-20 00:00: 00 12-10 23:59 :00 No [id number] 1 capsule DIRECTED 1 capsule DIRECTED (route: oral) Med Classific ation: Central Nervous System Agents aspirin 81 mg tablet,danita yed release 05-20 00:00: 00 12-10 23:59 :00 No [id number] 1 tablet DAILY 1 tablet DAILY (route: oral) Med Classific ation: Hematolog ical Agents Ca phos-cranbe rry-milk thistle capsule 05-20 00:00: 00 11-15 23:59 :00 No [id number] 1 capsule DAILY 1 capsule DAILY (route: oral) Med Classific ation: Alternati ve Therapy carbidopa 25 mg-levodopa 100 mg tablet 05-20 00:00: 00 12-10 23:59 :00 No [id number] 2.5 tablet DIRECTED 2.5 tablet DIRECTED (route: oral) Med Classific ation: Central Nervous System Agents montelukast 10 mg tablet 05-20 00:00: 00 12-10 23:59 :00 No [id number] 1 tablet BEDTIME 1 tablet BEDTIME (route: oral) Med Classific ation: Respirato ry Therapy Agents paroxetine 40 mg tablet 05-20 00:00: 00 12-10 23:59 :00 No [id number] 1 tablet 2 TIMES DAILY 1 tablet 2 TIMES DAILY (route: oral) Med Classific ation: Central Nervous System Agents trazodone 50 mg tablet 8-07 00:00: 00 12-10 23:59 :00 No [id number] 1 tablet BEDTIME 1 tablet BEDTIME (route: oral) Med Classific ation: Central Nervous System Agents Dulcolax (bisacodyl) 5 mg tablet,danita yed release 8-20 00:00: 00 12-10 23:59 :00 No [id number] 1 tablet DAILY 1 tablet DAILY (route: oral) Med Classific ation: Gastroint estinal Therapy Agents escitalopra m 10 mg tablet 2-24 00:00: 00 12-17 00:00 :00 No [id number] Per instruc tions Per instructio ns (route: oral) Med Classific ation: Central Nervous System Agents paroxetine 40 mg tablet 2-04 00:00: 00 02-12 23:59 :00 No [id number] 1 tablet 2 TIMES A DAY 1 tablet 2 TIMES A DAY (route: oral) Med Classific ation: Central Nervous System Agents trazodone 50 mg tablet 2-04 00:00: 00 02-12 23:59 :00 No [id number] 1 tablet AT BEDTIME 1 tablet AT BEDTIME (route: oral) Med Classific ation: Central Nervous System Agents amantadine HCl 100 mg tablet 3-06 00:00: 00 01-27 23:59 :00 No [id number] 1 tablet 2 TIMES DAILY 1 tablet 2 TIMES DAILY (route: oral) Med Classific ation: Central Nervous System Agents aspirin 81 mg tablet,danita yed release 3-06 00:00: 00 01-27 23:59 :00 No [id number] 1 tablet DAILY 1 tablet DAILY (route: oral) Med Classific ation: Hematolog ical Agents carbidopa 25 mg-levodopa 100 mg disintegrat ing tablet 3-06 00:00: 00 01-27 23:59 :00 No [id number] Per instruc tions DIRECTED Per instructio ns DIRECTED (route: oral) Med Classific ation: Central Nervous System Agents montelukast 10 mg tablet -06 00:00: 00 01-27 23:59 :00 No [id number] 1 tablet DAILY 1 tablet DAILY (route: oral) Med Classific ation: Respirato ry Therapy Agents Stool Softener 100 mg capsule 3-06 00:00: 00 01-27 23:59 :00 No [id number] 1 capsule 2 TIMES DAILY 1 capsule 2 TIMES DAILY (route: oral) Med Classific ation: Gastroint estinal Therapy Agents escitalopra m 10 mg tablet 02-15 00:00: 00 01-27 23:59 :00 No [id number] 1 tablet DAILY 1 tablet DAILY (route: oral) Med Classific ation: Central Nervous System Agents trazodone 50 mg tablet 02-15 00:00: 00 01-27 23:59 :00 No [id number] 2 tablet BEDTIME 2 tablet BEDTIME (route: oral) Med Classific ation: Central Nervous System Agents prednisone 10 mg tablet 15 00:00: 00 03-08 23:59 :00 No [id number] Per instruc tions DAILY Per instructio ns DAILY (route: oral) Med Classific ation: Endocrine trazodone 50 mg tablet 01-20 00:00: 00 Yes [id number] 2 tablet BEDTIME 2 tablet BEDTIME (route: oral) Med Classific ation: Central Nervous System Agents amantadine HCl 100 mg tablet 01-30 00:00: 00 10-27 23:59 :00 No [id number] 1 tablet 2 TIMES DAILY 1 tablet 2 TIMES DAILY (route: oral) Med Classific ation: Central Nervous System Agents aspirin 81 mg tablet,danita yed release 01-30 00:00: 00 Yes [id number] 1 tablet DAILY 1 tablet DAILY (route: oral) Med Classific ation: Hematolog ical Agents carbidopa 25 mg-levodopa 100 mg tablet 01-30 00:00: 00 03-05 23:59 :00 No [id number] Per instruc tions DIRECTED Per instructio ns DIRECTED (route: oral) Med Classific ation: Central Nervous System Agents escitalopra m 20 mg tablet 01-30 00:00: 00 Yes [id number] 1 tablet DAILY 1 tablet DAILY (route: oral) Med Classific ation: Central Nervous System Agents montelukast 10 mg tablet 01-30 00:00: 00 Yes [id number] 1 tablet BEDTIME 1 tablet BEDTIME (route: oral) Med Classific ation: Respirato ry Therapy Agents DOMPERIDONE 10mg 01-30 00:00: 00 03-05 23:59 :00 No [id number] 1 tablet DIRECTED 1 tablet DIRECTED (route: BY MOUTH) Med Classific ation: ANTIDIARR HEALS amoxicillin 875 mg-potassiu m clavulanate 125 mg tablet 03-05 00:00: 00 03-12 23:59 :00 No [id number] 1 tablet EVERY 12 HOURS 1 tablet EVERY 12 HOURS (route: oral) Med Classific ation: Anti-Infe ctive Agents carbidopa 25 mg-levodopa 100 mg tablet 03-05 00:00: 00 Yes [id number] Per instruc tions DIRECTED Per instructio ns DIRECTED (route: oral) Med Classific ation: Central Nervous System Agents Florastor 250 mg capsule 03-05 00:00: 00 03-15 23:59 :00 No [id number] 1 capsule 2 TIMES DAILY 1 capsule 2 TIMES DAILY (route: oral) Med Classific ation: Gastroint estinal Therapy Agents Cipro 250 mg tablet 03-17 00:00: 00 03-20 23:59 :00 No [id number] 1 tablet EVERY 12 HOURS 1 tablet EVERY 12 HOURS (route: oral) Med Classific ation: Anti-Infe ctive Agents clotrimazol e 1 % topical cream 03-17 00:00: 00 Yes [id number] Per instruc tions 2 TIMES DAILY Per instructio ns 2 TIMES DAILY (route: topical) Med Classific ation: Dermatolo gical ciprofloxac in 250 mg tablet 12 00:00: 00 04-03 23:59 :00 No [id number] 1 tablet EVERY 12 HOURS 1 tablet EVERY 12 HOURS (route: oral) Med Classific ation: Anti-Infe ctive Agents Daily Probiotic (S. boulardii) 250 mg capsule 12 00:00: 00 04-03 23:59 :00 No [id number] 1 capsule 2 TIMES DAILY 1 capsule 2 TIMES DAILY (route: oral) Med Classific ation: Gastroint estinal Therapy Agents fluconazole 100 mg tablet 04-18 00:00: 00 04-24 23:59 :00 No [id number] Per instruc tions DIRECTED Per instructio ns DIRECTED (route: oral) Med Classific ation: Anti-Infe ctive Agents metronidazo le 500 mg tablet 04-18 00:00: 00 04-24 23:59 :00 No [id number] 1 tablet DAILY 1 tablet DAILY (route: oral) Med Classific ation: Anti-Infe ctive Agents Gemtesa 75 mg tablet 08 00:00: 00 05-04 23:59 :00 No [id number] 1 tablet DAILY 1 tablet DAILY (route: oral) Med Classific ation: Genitouri nary Therapy bupropion HCl 75 mg tablet 7-17 00:00: 00 Yes [id number] 1 tablet DAILY 1 tablet DAILY (route: oral) Med Classific ation: Central Nervous System Agents Gemtesa 75 mg tablet 8-14 00:00: 00 Yes [id number] 1 tablet DAILY 1 tablet DAILY (route: oral) Med Classific ation: Genitouri nary Therapy methenamine hippurate 1 gram tablet 1-14 00:00: 00 Yes [id number] 1 tablet 2 TIMES DAILY 1 tablet 2 TIMES DAILY (route: oral) Med Classific ation: Genitouri nary Therapy nitrofurant oin 100 mg tablet 1-14 00:00: 00 12-07 23:59 :00 No [id number] 100 mg BEDTIME 100 mg BEDTIME (route: oral) Med Classific ation: Genitouri nary Therapy rivastigmin e 4.6 mg/24 hour transdermal patch 01-13 00:00: 00 Yes [id number] 1 patch, transde rmal 24 hours DAILY [...] End Date/Time Encounter Type Admission Type Attending [facility] Care Department Encounter ID Discharge Date Discharge Status Discharge Condition Discharge Reason Percent Goals Met 2025-03-26 00:00:00 2025 00:00:00 Outpatient RECERTIFIC [facility] [id number] 23.08
== END 2025-05-04 15:29 | disposition home or self-care (01) ==
LOC: CHSIMG 15:30
PROVIDERS: PCP Internal Medicine; Visit Provider Internal Medicine
DX: M25.512 Pain in left shoulder (principal); M25.511 Pain in right shoulder; M85.89 Other specified disorders of bone density and structure, multiple sites; M19.012 Primary osteoarthritis, left shoulder; M19.011 Primary osteoarthritis, right shoulder; M24.011 Loose body in right shoulder
CPT/HCPCS: 73030